=== PATIENT | male | born 1955 | race African-American/Black ===

== ENCOUNTER 2016-09-27 05:39 | Inpatient (IN) ==
[2016-09-27] MEDS ORDERED: SODIUM PHOSPHATE ENEMA 133 ML BOTTLE RECTAL ONE ×2 (05:40→06:17)
[2016-09-27] MEDS ORDERED: LACTATED RINGERS 1,000 ML IV SCH (06:00)
[2016-09-27] MEDS ORDERED: LORazepam 1 MG TABLET PO ONE (06:00)
[2016-09-27] MEDS ORDERED: FAMOTIDINE 20 MG TABLET PO ONE (06:00)
[2016-09-27] MEDS ORDERED: cefTRIAXone 1,000 MG in SODIUM CHLORIDE 0.9% 100 ML IV ONE (06:00)
[2016-09-27] MEDS ORDERED: FAMOTIDINE 20 MG TABLET ONE (06:16)
[2016-09-27] MEDS ORDERED: SODIUM CHLORIDE 0.9% 100 ML IV ONE (06:16)
[2016-09-27] MEDS ORDERED: LORazepam 1 MG TABLET ONE (06:16)
[2016-09-27] MEDS ORDERED: cefTRIAXone 1,000 MG VIAL ONE (06:16)
[2016-09-27] MEDS ORDERED: LIDOCAINE 1% 5 ML VIAL ONE (07:06)
[2016-09-27] MEDS ORDERED: ONDANSETRON 4 MG/2 ML VIAL ONE (07:06)
[2016-09-27] MEDS ORDERED: DEXAMETHASONE 10 MG/1 ML VIAL ONE (07:06)
[2016-09-27] MEDS ORDERED: NEOSTIGMINE 10 MG/10 ML VIAL ONE (07:06)
[2016-09-27] MEDS ORDERED: ROCURONIUM 100 MG/10 ML VIAL IV ONE (07:06)
[2016-09-27] MEDS ORDERED: PHENYLEPHRINE 1 MG/10 ML SYRINGE IV ONE (07:06)
[2016-09-27] MEDS ORDERED: PROPOFOL 200 MG/20 ML VIAL IV ONE (07:06)
[2016-09-27] MEDS ORDERED: GLYCOPYRROLATE 0.4 MG/2 ML VIAL ONE (07:06)
[2016-09-27 08:23] LABS: Apearance,Urine CLEAR (Clear); Bilirubin,Urine Negative (Negative); Blood, Urine Negative (Negative); Glucose,Urine (UA) Negative (Negative); Ketones,Urine Negative (Negative); Mucus,Urine Occasional /LPF (Occasional); Nitrite,Urine Negative (Negative); Protein,Urine Negative; RBC,Urine <1 /HPF (0-4); Squamous Epithelial Cell,Urine Occasional /HPF (0-10); Urine Color Yellow (Yellow); Urine Specific Gravity 1.026 (1.001-1.035); WBC,Urine <1 /HPF (0-6)
[2016-09-27] MEDS ORDERED: ONDANSETRON 4 MG/2 ML VIAL IV PRN (11:09)
--- NOTE | 2016-09-27 11:24 | Operative Note ---
Date of procedure: 09/27/16 Pre-op diagnosis: Prostate cancer Post-op diagnosis: same Procedure: 60-year-old black male with intermediate risk carcinoma prostate manner for robotic prostatectomy. This procedure was explained to the patient and his at length and in detail. Risks, complications, outcomes, sequelae, prognosis and alternative therapy was thoroughly discussed. Patient understood this and agreed to proceed. Patient was brought to the operative suite placed table in supine position. He was given a general endotracheal anesthetic and then secured on the securing device for robotic prostatectomy. He is plated placed in low stirrups. Patient is then prepared and draped in usual sterile manner. After formal timeout, patient was then placed in Trendelenburg. The patient does have small umbilical hernia. We went above the umbilicus and somewhat further cephalad than I normally would to stay away from the hernia small incision is created. Veress needle was then used passed into the abdominal wall into the peritoneal cavity. Placement was confirmed with the to click and saline drop test. Pneumoperitoneum was created after about 3-1/2 L the Veress needle was removed and an 8 mm trochars placed. Camera was inserted and intra- abdominal contents are inspected. There is no vascular bowel injury from the access. There is some adhesions on the left side of the colon which will have to be taken down and there is also some appendix adhesions on the right side which will have to be taken down. 8 cm lateral to the camera on either side a # 1 and #3 arm was placed. These were placed under direct vision. Lateral to the third arm is a fourth fourth trocar and this was placed under direct vision. The robot was then docked and I went to the console. Using [place] forceps of the left hand and monopolar scissors in the right dissection was done posteriorly. Incision created in the cul-de-sac. Vas deferens were identified and isolated and then clipped and divided. Seminal vesicles were dissected out of the bed. Care was taken using minimal cautery as this is nerve sparing. A window in Denonvilliers fascia was created. Attention was then directed bladder flap. Incision created from the internal ring up lateral to each median umbilical ligament. Ligaments are divided and cauterized the bladder flap was developed using sharp and blunt dissection. Dissection was continued in dropping the bladder into the pelvis. The endopelvic fascia was incised. There is a moderately large superficial dorsal vein and this was then ligated with the vessel sealer. Puboprostatics were incised. Prostate was defatted. There is a large complex. #1 Vicryl was then used to ligate the dorsal venous complex. Attention was directed bladder neck. Light traction on the Burden and bunching the tissue in the midline identify the bladder neck area. This is then scored with cautery and using sharp dissection down the bladder the bladder was entered. Bladder was drained the Burden catheter was deflated and the Burden catheter was pulled back into the prostatic urethra. Cautery was used to score the posterior bladder neck and sharp dissection was used to dissect down posteriorly. The fourth arm was used to retract the prostate up with pro-grasp on the posterior median lobe. After dissection down to the vas and the seminal vesicles these were then pulled up through this window. Lateral pedicles were intermittently taken down with hemoclips and divided. Lateral prostatic fascia was incised on both sides and the nerve bundles were then dissected posteriorly along the posterior margin of the prostate. Remaining pedicles were taken down in the posterior plane between the rectum and the prostate was sharply dissected and developed. Small vessels were cauterized with bipolar cautery. The nerve bundle was then dissected further inferiorly on both sides. Attention was directed to the dorsal vein complex this was incised and had to be oversewn with a 2-0 chromic. The urethra was encountered in the anterior urethra was divided Burden catheter was pulled back and the posterior urethra was divided. Remaining attachments were then divided prostate and seminal vesicles within removed and placed in specimen bag and set to the side. 2-0 Vicryl was used to approximate the posterior urethral plate to the posterior bladder neck. In the anastomosis at the urethrovesical junction was performed with a 3 oh andreas suture beginning at 6 o'clock position both outside in. This was then continued on both sides from the 5:00 to 1:00 and 7:00 to 11: 00 positions. A new 22 [place] Burden was then inserted and the anastomotic sutures were tied securely. Catheter was irrigated and this was a watertight anastomosis. Pelvic no dissection was done on both sides. Adventitia the external iliac vein was entered and mario tissue was swept in the obturator fossa. The nodes were then teased out. The obturator nerve was seen at an kept in view at all times and not injured. Both sides were then sent separate specimen. Pelvis was irrigated and drained. Pneumoperitoneum was dropped to 0 and there was no bleeding. I re-scrubbed came back to the operating table. The assistance port was incised to enlarge to remove the specimen. Cautery was used to incise the fascia and the muscles. And the specimen bag to contain the prostate and seminal vesicles were then removed and sent to pathology. This wound was closed with a running 0 Monocryl. All wounds were irrigated and drained and hemostasis was then checked with cautery. And skin clips were used to close the skin on all wounds. Sterile dressings were placed on the wound and the catheter secured to the upper thigh. Patient tolerates procedure well and was sent to the recovery room in stable condition. Implants: 22 [place] all silicone Burden Anesthesia: ROSY Surgeon / Physician: Efrain Jordan Estimated blood loss: other (100cc) Specimens: other (Prostate with seminal vesicles, bilateral obturator nodes) Condition: stable Disposition: PACU Discharge Plan - Discharge Medications No Action Lisinopril [Prinivil] 5 mg PO BID amLODIPine [Norvasc] 5 mg PO DAILY HYDROcodone/ACETAMIN 10-325 [[place] 10-325] 1 tablet PO Q6H - Follow Up or Referral - Forms/Instructions
[2016-09-27] MEDS ORDERED: DESFLURANE 1 UNIT/15 MINUTE INH ONE (11:30)
[2016-09-27] MEDS ORDERED: MIDAZOLAM 2 MG/2 ML VIAL ONE (11:31)
[2016-09-27] MEDS ORDERED: ACETAMINOPHEN 1,000 MG/100 ML VIAL IV ONE (11:31)
[2016-09-27] MEDS ORDERED: SUFentanil 50 MCG/ML AMP ONE (11:31)
[2016-09-27] MEDS ORDERED: HYDROmorphone PCA 30 MG/30 ML SYRINGE IV ONE (11:41)
[2016-09-27] MEDS: DEXTROSE 5% NACL 0.45% 1,000 ML IV SCH (11:46)
[2016-09-27] MEDS: HYDROmorphone PCA 30 MG/30 ML SYRINGE IV SCH (11:50)
--- NOTE | 2016-09-27 12:26 | Urology Progress Note ---
Urology - PN: Subj Interval history: Postoperative check. Patient is awake but sleepy. Urine is mildly bloody. Vital signs are stable. Patient is stable. Exam - Constitutional Vitals: Period Temp Pulse Resp BP Sys/Mahmood Pulse Ox Last 24 Hr 97.1 F-98.2 F 43-52 12-18 140-185/77-90 97-99
--- NOTE | 2016-09-27 13:08 | Anesthesia Post-Op ---
Anesthesia Post OP - Post Ansesthetic Evaluation Patient seen in post op: Yes Resp: within normal limits CV: within normal limits Mental: within normal limits Temp: within normal limits Mgis-Ql-Cwnavlhes: within normal limits Nausea and Vomiting: within normal limits Pain: within normal limits
--- NOTE | 2016-09-27 16:08 | Pulmonology Progress Note ---
Pulmonary - PN: Subj Interval history: Patient is a 60 year black man that came in today for robotic prostatectomy for prostate cancer. He has a history of having hypertension and mild heart failure in the past. He has been a smoker. He did well with surgery today and had no problems with anesthesia. He is very sore but otherwise says he feels okay. His heart rate has been on the slow side since surgery. Otherwise he is doing okay Exam (Progress Note) - Constitutional Vitals: Period Temp Pulse Resp BP Sys/Mahmood Pulse Ox Last 24 Hr 97.1 F-98.2 F 41-52 12-18 140-187/77-98 97-99 General appearance: normal weight, no acute distress - Head Head exam: Present: normal inspection, normocephalic - Eye Eye exam: Present: EOMI. Absent: scleral icterus Pupils: Present: STANISLAW - ENT ENT exam: Present: normal exam - Neck Neck exam: Present: normal inspection. Absent: lymphadenopathy, thyromegaly - Respiratory Respiratory exam: Present: clear to auscultation bilaterally. Absent: wheezes - Cardiovascular Cardiovascular exam: Present: bradycardia, irregular rhythm. Absent: systolic murmur - GI/Abdominal GI/Abdominal exam: Present: hypoactive bowel sounds, tenderness (He has mild tenderness of his lower abdomen), soft. Absent: distended, organomegaly - Extremities Exam Extremities exam: Absent: calf tenderness, edema - Neurological Exam Neurological exam: Present: alert, oriented X3, CN II-XII intact - Psychiatric Psychiatric exam: Present: normal affect, normal mood - Skin Skin exam: Present: warm, dry Assessment and Plan (1) Prostate CA Status: Acute Assessment and plan: The patient has prostate cancer and status post surgery. Current Visit: Yes (2) Status post robot-assisted surgical procedure Status: Acute Assessment and plan: The patient has done fairly well with the surgery so far. Current Visit: Yes (3) Hypertension Status: Acute Assessment and plan: His blood pressure is a little on the high side so far. Current Visit: Yes (4) Former smoker Status: Acute Assessment and plan: He is not having trouble with his breathing so far. Current Visit: Yes
[2016-09-27] MEDS: LACTULOSE 20 GM/30 ML UDCUP PO SCH (20:42)
[2016-09-27] MEDS: LISINOPRIL 5 MG TABLET PO SCH (20:47)
[2016-09-28] MEDS: DEXTROSE 5% NACL 0.45% 1,000 ML IV SCH ×2 (02:43→09:37)
[2016-09-28 05:46] LABS: Basophils % 0.1 % (0.0-0.8); Eosinophils % 0.1 % (0.00-10.9); Hematocrit 38.4 VOL% (42.0-52.0); Hemoglobin 12.8 GM/DL (14.0-18.0); Immature Granulocytes % 0.5 %; Immature Granulocytes Absolute 0.06 #; Lymphocytes % 14.9 % (21.2-54.2); Mean Corpuscular HGB Conc 33.3 GM/DL (32-36); Mean Corpuscular Hemoglobin 28 PG (27-34); Mean Platelet Volume 11.7 FL (9.6-12.0); Monocytes # 0.9 10*3/uL (0.11-0.8); Monocytes % 6.9 % (1.7-12.7); Neutrophils # 10.2 10*3/uL (1.4-7.4); Neutrophils % 77.5 % (38.7-73.9); Platelet Count 164 T/CUMM (130-400); Red Blood Count 4.57 MC/CUMM (3.8-5.5); Red Cell Distribution Width 13.9 % (9.3-17.3); White Blood Count 13.1 T/CUMM (4-12)
[2016-09-28 06:17] LABS: Calcium 8.5 MG/DL (8.5-10.1); Osmolality,Calculated 276.8 MOS/KG (273-304); Potassium 4.8 MMOL/L (3.5-5.1)
[2016-09-28] MEDS ORDERED: amLODIPine 5 MG TABLET PO SCH (09:00)
--- NOTE | 2016-09-28 09:31 | Urology Progress Note ---
Urology - PN: Subj Interval history: Postop day 1. He is doing well he is hungry. His abdomen is soft and flat. Bowel sounds are returning. His dressings are dry and intact. Urine is clearing. He is tolerating his diet. 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 We need to ambulate. H&H is 12 and 32 electrolytes are normal as is the creatinine. Exam - Constitutional Vitals: Period Temp Pulse Resp BP Sys/Mahmood Pulse Ox Last 24 Hr 96.9 F-98.2 F 41-52 12-18 118-187/65-111 96-100 Results - Labs CBC & BMP: 09/28/16 04:59 09/28/16 04:59
[2016-09-28] MEDS: SOLIFENACIN 5 MG TABLET PO SCH (09:36)
[2016-09-28] MEDS: LACTULOSE 20 GM/30 ML UDCUP PO SCH ×2 (09:36→20:13)
--- NOTE | 2016-09-28 11:49 | Pathology Report from [facility] ---
ACCESSION # : [id number] PATIENT NAME : Ricardo Javier ORDERING DR : MARA DONALDSON MD CLINICAL HX: Prostate CA POST-OP DX: Same SPECIMEN INFO: #1 [place] margin #2 RT obturator node #3 LT obturator node #4 Prostate GROSS DESCRIPTION: #1 Received fresh for frozen section labeled "RICARDO JAVIER & #1" is a 0.6 x 0.3 cm red nicholson tissue fragment submitted in cassette # 1 for frozen section in cassette #1.#2 Received fresh labeled with the patient' s name "RICARDO JAVIER & #2" consists of a 2.5 x 2.3 cm aggregate of yellow- pink fatty tissue. Sectioned and submitted entirely in cassette 2A and 2B.#3 Received fresh labeled with the patient's name "RICARDO JAVIER & #3" consists of a fragment of yellow-pink fatty tissue measuring 5.0 x 2.3 cm. Sectioned and submitted in cassette #3.#4 Received in formalin labeled with the patient's name "RICARDO JAVIER & #4" consists of a 48 gram prostate measuring 4.8 x 4.0 x 4.0 cm. The seminal vesicles measure 4.5 x 3.2 cm in aggregate. The serosa is shaggy and red-nicholson with the right half inked black and the left half inked blue. The cut surfaces of the prostate are nodular and nicholson. Sections submitted : 4A apical margin, 4B base margin, 4C seminal vesicles margin, 4D thru 4H right apex to base, 4I thru 4M left apex to base. DIAGNOSIS FOR RICARDO JAVIER: #1 APEX MARGIN: Prostate tissue; negative for malignancy.#2 #3 #4 PROSTATE, RADICAL PROSTATECTOMY (4.8 x 4.0 x 4.0 cm, 48gm) : TYPE: Prostatic adenocarcinoma, bilateral. GRADE: Primary Pattern Grade 3; Secondary Pattern Grade 3; Total [place] Score 6. ANABEL GRADE GROUP: 1(<6/=6) . TUMOR QUANTITATION: Percentage of prostate involved by tumor 25%; Dominant nodule = 8 mm. MARGINS: Margins uninvolved by invasive carcinoma. EXTRAPROSTATIC EXTENSION: Not Identified. SEMINAL VESICLE INVASION: Not identified. URINARY BLADDER NECK INVASION: Not identified. LYMPH-VASCULAR INVASION: Not identified. PERINEURAL INVASION: Present. LYMPH NODES: Pelvic lymph node dissection negative for malignancy (0/10). AJCC PATHOLOGIC STAGE IIB ([id number]). SERVICE DATE: 09/27/2016 REPORT DATE: 09/28/2016 PATHOLOGIST: Kingston Sweeney
--- NOTE | 2016-09-28 12:23 | Pulmonology Progress Note ---
Pulmonary - PN: Subj Interval history: Patient is a 60 year black man that came in for robotic prostatectomy for prostate cancer. He has a history of having hypertension and mild heart failure in the past. He has been a smoker. He did well with surgery and had no problems with anesthesia. He is feeling better today and having less soreness. He is hungry and wants to eat some food. His heart rate and blood pressure have been on the low side. He is not having any chest pain or shortness of breath. He is going to try to ambulate some today. Exam (Progress Note) - Constitutional Vitals: Period Temp Pulse Resp BP Sys/Mahmood Pulse Ox Last 24 Hr 96.9 F-98.9 F 41-50 18-18 118-181/65-111 96-100 Exam: General appearance: normal weight, no acute distress, he looks comfortable sitting up in bed. - Head Head exam: Present: normal inspection, normocephalic - Eye Eye exam: Present: EOMI. Absent: scleral icterus Pupils: Present: STANISLAW - ENT ENT exam: Present: normal exam - Neck Neck exam: Present: normal inspection. Absent: lymphadenopathy, thyromegaly - Respiratory Respiratory exam: Present: clear to auscultation bilaterally. Absent: wheezes - Cardiovascular Cardiovascular exam: Present: bradycardia, irregular rhythm. Absent: systolic murmur - GI/Abdominal GI/Abdominal exam: Present: hypoactive bowel sounds, tenderness (He has mild tenderness of his lower abdomen), soft. Absent: distended, organomegaly - Extremities Exam Extremities exam: Absent: calf tenderness, edema, he is moving his extremities okay. - Neurological Exam Neurological exam: Present: alert, oriented X3, CN II-XII intact - Psychiatric Psychiatric exam: Present: normal affect, normal mood - Skin Skin exam: Present: warm, dry Results - Labs CBC & BMP: 09/28/16 04:59 09/28/16 04:59 Assessment and Plan (1) Prostate CA Status: Acute Assessment and plan: The patient has prostate cancer and status post surgery. He is doing well postop. Current Visit: Yes (2) Status post robot-assisted surgical procedure Status: Acute Assessment and plan: The patient had a good resection of his tumor and is doing well. Current Visit: Yes (3) Hypertension Status: Acute Assessment and plan: His blood pressure has been fairly stable although his heart rate is slow. We are holding some medicines for now. Current Visit: Yes (4) Former smoker Status: Acute Assessment and plan: He is not having trouble with his breathing so far. Current Visit: Yes
[2016-09-28] MEDS: oxyCODONE/ACETAMINOPHEN 5-325 MG TABLET PO PRN ×3 (12:28→23:42)
[2016-09-28] MEDS: LISINOPRIL 5 MG TABLET PO SCH ×2 (12:29→21:06)
[2016-09-28] MEDS: HYDROmorphone PCA 30 MG/30 ML SYRINGE IV SCH (13:40)
[2016-09-29] MEDS: SOLIFENACIN 5 MG TABLET PO SCH (08:27)
[2016-09-29] MEDS: LISINOPRIL 5 MG TABLET PO SCH (08:27)
[2016-09-29] MEDS: LACTULOSE 20 GM/30 ML UDCUP PO SCH (08:27)
--- NOTE | 2016-09-29 10:25 | Pulmonology Progress Note ---
Pulmonary - PN: Subj Interval history: Patient is a 60 year black man that came in for robotic prostatectomy for prostate cancer. He has a history of having hypertension and mild heart failure in the past. He has been a smoker. He did well with surgery and had no problems with anesthesia. He continues to have some soreness and did have some abdominal cramps. He thinks he may have eaten a little too much yesterday. He is feeling better today. His heart rate is been a little slow but it is in the 50s now. His blood pressure has been reasonable. Overall he seems to be doing a little better. His urine is cleared up nicely Exam (Progress Note) - Constitutional Vitals: Period Temp Pulse Resp BP Sys/Mahmood Pulse Ox Last 24 Hr 98.3 F-98.9 F 46-61 18-20 134-169/73-94 92-96 Exam: General appearance: normal weight, no acute distress, he looks comfortable sitting up in bed. He is in no distress - Head Head exam: Present: normal inspection, normocephalic - Eye Eye exam: Present: EOMI. Absent: scleral icterus Pupils: Present: STANISLAW - ENT ENT exam: Present: normal exam - Neck Neck exam: Present: normal inspection. Absent: lymphadenopathy, thyromegaly - Respiratory Respiratory exam: Present: clear to auscultation bilaterally. Absent: wheezes - Cardiovascular Cardiovascular exam: Present: bradycardia, irregular rhythm. Absent: systolic murmur - GI/Abdominal GI/Abdominal exam: Present: hypoactive bowel sounds, tenderness (He has mild tenderness of his lower abdomen), soft. Absent: distended, organomegaly. His hematuria has cleared - Extremities Exam Extremities exam: Absent: calf tenderness, edema, he is moving his extremities okay. - Neurological Exam Neurological exam: Present: alert, oriented X3, CN II-XII intact - Psychiatric Psychiatric exam: Present: normal affect, normal mood - Skin Skin exam: Present: warm, dry Results - Labs CBC & BMP: 09/28/16 04:59 09/28/16 04:59 Assessment and Plan (1) Prostate CA Status: Acute Assessment and plan: The patient has prostate cancer and status post surgery. He is doing well postop. Current Visit: Yes (2) Status post robot-assisted surgical procedure Status: Acute Assessment and plan: The patient had a good resection of his tumor and is doing well. He has had some abdominal pain but is getting better. Current Visit: Yes (3) Hypertension Status: Acute Assessment and plan: His blood pressure has been around 160 systolic. His heart rate is in the 50s now. He can probably start his lisinopril back soon. Current Visit: Yes (4) Former smoker Status: Acute Assessment and plan: He is not having trouble with his breathing so far. Current Visit: Yes
--- NOTE | 2016-09-29 12:40 | Discharge Summary ---
Hospital Course - Hospital Course Hospital Course: 60-year-old gentleman with carcinoma prostate. Like to undergo robotic radical prostatectomy. Underwent this without difficulty. Postoperatively he had an uneventful course. His urine was bloody at first but is cleared up. His H&H has been stable. Electrolytes are normal as well as his creatinine. He is now tolerating regular diet. His wounds are healing well. He is reached maximal hospital benefit and will be discharged. He will come see my nurse on 10/06/16 for catheter removal. He will see me the following week. - Time spent with patient Time with patient DS: Greater than 30 minutes Diagnosis - Discharge Diagnosis (1) Prostate CA Status: Resolved (2) Hypertension Status: Chronic Discharge Plan - Discharge Data Disposition: Disch To Home/Self Care Condition at Discharge: Stable Discharge Diet: heart healthy Activity: no lifting, other (Walking on flat ground is encouraged, no heavy lifting, straining) Hygiene: no restrictions Weight Bearing at Discharge: full weight bearing Driving: not until seen by doctor Contact your physician if you experience:: fever over 101, Nausea/Vomiting, Bleeding, pain uncontrolled by pain medications - Discharge Medications New oxyCODONE/ACETAMINOPHEN 5-325 [Percocet 5-325] 1 - 2 tablet PO Q4H PRN #0 tablet PRN Reason: Pain Moderate (4-7) Solifenacin [Vesicare] 5 mg PO DAILY tablet Continue Lisinopril [Prinivil] 5 mg PO BID amLODIPine [Norvasc] 5 mg PO DAILY HYDROcodone/ACETAMIN 10-325 [[place] 10-325] 1 tablet PO Q6H - Follow Up or Referral - Forms/Instructions Exam - Constitutional Vitals: Period Temp Pulse Resp BP Sys/Mahmood Pulse Ox Last 24 Hr 98.3 F-98.9 F 49-61 18-20 151-169/73-94 92-96 DS: Provider Date of admission: 09/27/16 05:40 Primary care physician: Robert Dawson Attending physician on admission: Efrain Jordan MD Consults: 09/27/16 11:13 Consult to Physician [CONS] Routine Comment: known to you Consulting Provider: Beltran Carlisle Consult to Specialist Group: Urology When should Consulting Provider be notified: Now Person Notified: aware Date Notified: 09/28/16 Time Notified: 12:35 Consult Notification Comment: left message with Arcenio at 1236 on answering machine to call CALL BACK @2:18 VM CAME ON Discharging clinician: Efrain Jordan MD
[2016-09-29 12:50] VITALS: BP 154/76
== END 2016-09-29 15:10 | disposition home or self-care (01) | DRG 708 ==
LOC: N.OR 05:39 → N.SDSINP 05:40 → EDSTATUS 07:30 → N.5E 08:31
PROVIDERS: ADMIT Urology; ATTEND Urology

== ENCOUNTER 2020-10-20 05:07 | Observation (INO) ==
[2020-10-20] MEDS ORDERED: FUROSEMIDE 100 MG/10 ML VIAL ONE (05:37)
[2020-10-20] MEDS ORDERED: methylPREDNISolone SOD SUC 125 MG/2 ML VIAL ONE (05:37)
[2020-10-20 05:39] LABS: Basophils # 0.1 10*3/uL (0.0-0.2); Basophils % 0.7 % (0.0-0.8); Eosinophils # 0.3 10*3/uL (0.0-0.87); Eosinophils % 4.3 % (0.00-10.9); Hematocrit 40.4 VOL% (42.0-52.0); Hemoglobin 13.4 GM/DL (14.0-18.0); Immature Granulocytes % 0.1 %; Immature Granulocytes Absolute 0.01 #; Lymphocytes # 2.9 10*3/uL (1.4-4.0); Lymphocytes % 39.1 % (21.2-54.2); Mean Corpuscular HGB Conc 33.2 GM/DL (32-36); Mean Corpuscular Volume 87.3 FL (87-102); Mean Platelet Volume 12.1 FL (9.6-12.0); Monocytes % 6.3 % (1.7-12.7); Neutrophils % 49.5 % (38.7-73.9); Platelet Count 146 T/CUMM (130-400); Red Blood Count 4.63 MC/CUMM (3.8-5.5); Red Cell Distribution Width 13.6 % (9.3-17.3); White Blood Count 7.4 T/CUMM (4-12)
[2020-10-20] MEDS ORDERED: ASPIRIN 325 MG TABLET PO STA (05:39)
[2020-10-20] MEDS ORDERED: methylPREDNISolone SOD SUC 125 MG/2 ML VIAL IV STA (05:39)
[2020-10-20] MEDS ORDERED: ONDANSETRON 4 MG/2 ML VIAL IV STA (05:39)
[2020-10-20] MEDS ORDERED: NITROGLYCERIN 2% OINT 1 INCH/GM PACK TOP STA (05:39)
[2020-10-20] MEDS ORDERED: MORPHINE 4 MG/1 ML VIAL IV STA (05:39)
[2020-10-20] MEDS ORDERED: FUROSEMIDE 100 MG/10 ML VIAL IV STA (05:39)
[2020-10-20] MEDS ORDERED: ALBUTEROL 2.5 MG/3 ML NEB RESP TX ONE ×2 (05:52→06:36)
[2020-10-20] MEDS ORDERED: ALBUTEROL NEB SOLN 5 MG/ML 20 ML/BOTTLE CONT NEB SCH (06:00)
[2020-10-20 06:04] LABS: Albumin 3.4 G/DL (3.4-5.0); Bilirubin,Total 0.7 MG/DL (0.2-1.0); Calcium 8.9 MG/DL (8.5-10.1); Osmolality,Calculated 282.3 MOS/KG (273-304); Potassium 4.1 MMOL/L (3.5-5.1); Total Protein 7.2 G/DL (6.4-8.2)
[2020-10-20 06:05] LABS: PT Patient Result 11.4 SECS (10.5-12.0); Partial Thromboplastin Time 26.9 SECS (23.9-33.8)
[2020-10-20] MEDS ORDERED: ONDANSETRON 4 MG/2 ML VIAL IV PRN (09:28)
[2020-10-20] MEDS ORDERED: DOCUSATE SODIUM 100 MG CAPSULE PO PRN (09:28)
[2020-10-20] MEDS ORDERED: MAGNESIUM SULF RIDER 2 GM/50 ML PREMIX IV PRN (09:28)
[2020-10-20] MEDS ORDERED: MAGNESIUM SULF RIDER 4 GM/100 ML PREMIX IV PRN (09:28)
[2020-10-20] MEDS ORDERED: ZALEPLON 5 MG CAPSULE PO PRN (09:28)
[2020-10-20] MEDS ORDERED: NICOTINE 21 MG/24 HR PATCH TRANSDERM PRN (09:28)
[2020-10-20] MEDS ORDERED: GLUCAGON 1 MG VIAL IM PRN (09:28)
[2020-10-20] MEDS ORDERED: DEXTROSE 50% 25 GM/50 ML VIAL IV PRN (09:28)
[2020-10-20] MEDS ORDERED: ACETAMINOPHEN 325 MG TABLET PO PRN (09:28)
[2020-10-20] MEDS ORDERED: hydrALAZINE 20 MG/1 ML VIAL IV PRN (10:12)
[2020-10-20 12:07] LABS: ABG Base Excess 1.5 MMOL/L (-2.5-2.5); ABG HCO3 25.6 MMOL/L (20-26); ABG Oxygen Saturation 96.9 % (95-100); ABG PCO2 38.8 MM HG (35-48); ABG PH 7.437 (7.35-7.45); ABG PO2 90.2 MM HG (80-95); ABG TCO2 26.8 MMOL/L (23-27); Pt O2 Delivery Device Room Air
[2020-10-20] MEDS: ENOXAPARIN 40 MG/0.4 ML SYRINGE SUBCUT SCH (13:01)
[2020-10-20] MEDS: PANTOPRAZOLE 40 MG TABLET PO SCH (13:01)
[2020-10-20] MEDS: ALBUTEROL 1.25 MG/3 ML NEB RESP TX SCH ×2 (15:50→19:01)
[2020-10-20] MEDS: ATORVASTATIN 40 MG TABLET PO SCH (17:37)
[2020-10-20] MEDS: lisinopriL 5 MG TABLET PO SCH (20:24)
[2020-10-21] MEDS: ALBUTEROL 1.25 MG/3 ML NEB RESP TX SCH ×4 (02:58→18:22)
[2020-10-21 06:38] LABS: Basophils % 0.1 % (0.0-0.8); Eosinophils # 0.1 10*3/uL (0.0-0.87); Eosinophils % 0.7 % (0.00-10.9); Hematocrit 35.5 VOL% (42.0-52.0); Hemoglobin 11.8 GM/DL (14.0-18.0); Immature Granulocytes % 0.4 %; Immature Granulocytes Absolute 0.05 #; Lymphocytes # 2.4 10*3/uL (1.4-4.0); Lymphocytes % 17.5 % (21.2-54.2); Mean Corpuscular HGB Conc 33.2 GM/DL (32-36); Mean Corpuscular Volume 85.1 FL (87-102); Mean Platelet Volume 12.4 FL (9.6-12.0); Monocytes % 6.4 % (1.7-12.7); Neutrophils % 74.9 % (38.7-73.9); Platelet Count 150 T/CUMM (130-400); Red Blood Count 4.17 MC/CUMM (3.8-5.5); Red Cell Distribution Width 13.4 % (9.3-17.3); White Blood Count 13.8 T/CUMM (4-12)
[2020-10-21 07:05] LABS: Calcium 8.7 MG/DL (8.5-10.1); Osmolality,Calculated 285.3 MOS/KG (273-304); Potassium 3.6 MMOL/L (3.5-5.1); Risk Ratio 3.9; Thyroid Stimulating Hormone 0.19 uIU/ml (0.358-3.74); VLDL CHOLESTEROL 11.6 MG/DL
[2020-10-21] MEDS: PANTOPRAZOLE 40 MG TABLET PO SCH (09:48)
[2020-10-21] MEDS: ASPIRIN EC 81 MG TABLET PO SCH (09:48)
[2020-10-21] MEDS: lisinopriL 5 MG TABLET PO SCH ×2 (09:48→20:17)
[2020-10-21] MEDS: amLODIPine 5 MG TABLET PO SCH (09:48)
[2020-10-21] MEDS: SOLIFENACIN 5 MG TABLET PO SCH (09:49)
[2020-10-21] MEDS: ENOXAPARIN 40 MG/0.4 ML SYRINGE SUBCUT SCH (09:49)
[2020-10-21] MEDS: FUROSEMIDE 40 MG/4 ML VIAL IV SCH (09:52)
[2020-10-21] MEDS ORDERED: methylPREDNISolone ACETATE 80 MG/1 ML VIAL IM ONE (10:00)
[2020-10-21] MEDS ORDERED: guaiFENesin 200 MG/10 ML UDCUP PO PRN (10:10)
[2020-10-21] MEDS: ATORVASTATIN 40 MG TABLET PO SCH (17:56)
[2020-10-22] MEDS: ALBUTEROL 1.25 MG/3 ML NEB RESP TX SCH ×3 (03:36→13:37)
[2020-10-22 04:40] LABS: Calcium 8.7 MG/DL (8.5-10.1); Osmolality,Calculated 280.5 MOS/KG (273-304)
[2020-10-22] MEDS: amLODIPine 5 MG TABLET PO SCH (08:36)
[2020-10-22] MEDS: ASPIRIN EC 81 MG TABLET PO SCH (08:36)
[2020-10-22] MEDS: PANTOPRAZOLE 40 MG TABLET PO SCH (08:36)
[2020-10-22] MEDS: ENOXAPARIN 40 MG/0.4 ML SYRINGE SUBCUT SCH (08:37)
[2020-10-22] MEDS: FUROSEMIDE 40 MG/4 ML VIAL IV SCH (08:37)
[2020-10-22] MEDS: lisinopriL 5 MG TABLET PO SCH (08:37)
[2020-10-22] MEDS: SOLIFENACIN 5 MG TABLET PO SCH (08:37)
[2020-10-22 12:04] VITALS: BP 113/59
== END 2020-10-22 14:44 | disposition home or self-care (01) ==
LOC: N.TELES 05:07 → N.EDINP 05:07 → N.ED 05:07 → N.TELES 11:01
PROVIDERS: ADMIT Family Medicine; ATTEND Family Medicine

== ENCOUNTER 2021-01-04 09:19 | Inpatient (IN) ==
[~2021-01-04 09:19] MED LIST: DEXTROSE 50% 25 GM/50 ML VIAL IV PRN; GLUCAGON 1 MG VIAL IM PRN
[2021-01-04 11:57] LABS: Basophils % 0.7 % (0.0-0.8); Eosinophils # 0.3 10*3/uL (0.0-0.87); Hematocrit 41.9 VOL% (42.0-52.0); Hemoglobin 13.8 GM/DL (14.0-18.0); Immature Granulocytes % 0.2 %; Immature Granulocytes Absolute 0.01 #; Lymphocytes # 2.2 10*3/uL (1.4-4.0); Lymphocytes % 40.2 % (21.2-54.2); Mean Corpuscular HGB Conc 32.9 GM/DL (32-36); Mean Platelet Volume 11.7 FL (9.6-12.0); Monocytes % 7.7 % (1.7-12.7); Neutrophils % 46.2 % (38.7-73.9); Platelet Count 167 T/CUMM (130-400); Red Blood Count 4.87 MC/CUMM (3.8-5.5); Red Cell Distribution Width 14.4 % (9.3-17.3); White Blood Count 5.4 T/CUMM (4-12)
[2021-01-04 12:30] LABS: Albumin 3.7 G/DL (3.4-5.0); Bilirubin,Total 1.3 MG/DL (0.20-1.00); Osmolality,Calculated 287.8 MOS/KG (273-304); Potassium 4.3 MMOL/L (3.5-5.1); Total Protein 7.4 G/DL (6.4-8.2)
[2021-01-04] MEDS: CHLORHEXIDINE 0.12% ORAL RINSE 60 ML BOTTLE SWISH/SPIT SCH ×2 (14:09→21:48)
[2021-01-04] MEDS: CHLORHEXIDINE 4% SOLN 118 ML BOTTLE TOP SCH ×3 (14:10→21:48)
[2021-01-04] MEDS: ASCORBIC ACID 500 MG TABLET PO SCH ×2 (14:10→21:48)
[2021-01-04 17:20] LABS: ABG Base Excess -1.8 MMOL/L (-2.5-2.5); ABG HCO3 22.9 MMOL/L (20-26); ABG Oxygen Saturation 97.4 % (95-100); ABG PO2 88.9 MM HG (80-95); ABG TCO2 20.2 MMOL/L (23-27); Allen Test Positive; Pt O2 Delivery Device Room Air
[2021-01-04] MEDS: SODIUM CHLORIDE 0.9% 1,000 ML IV SCH (20:31)
[2021-01-05] MEDS ORDERED: PAPAVERINE 60 MG/2 ML VIAL ONE (04:21)
[2021-01-05] MEDS ORDERED: VANCOMYCIN 1,000 MG VIAL ONE (04:22)
[2021-01-05] MEDS ORDERED: VANCOMYCIN 500 MG VIAL ONE (04:22)
[2021-01-05] MEDS ORDERED: CHLORHEXIDINE 4% SOLN 118 ML BOTTLE TOP ONE (05:00)
[2021-01-05] MEDS ORDERED: CEFUROXIME INJ 1,500 MG in SODIUM CHLORIDE 0.9% 100 ML IV ONE (05:00)
[2021-01-05] MEDS ORDERED: LACTATED RINGERS 1,000 ML IV ONE ×2 (05:41→11:13)
[2021-01-05] MEDS ORDERED: SODIUM CHLORIDE 0.9% 1,000 ML IV ONE ×2 (05:42→10:22)
[2021-01-05] MEDS ORDERED: PHENYLEPHRINE DRIP 20 MG/250 ML PREMIX IV ONE (05:44)
[2021-01-05] MEDS ORDERED: NITROGLYCERIN DRIP 50 MG/250 ML BOTTLE IV ONE ×2 (05:46→19:35)
[2021-01-05] MEDS ORDERED: HEPARIN/NACL 0.9% 2 UNITS/ML 1,000 UNIT/500 ML BAG IV ONE (05:48)
[2021-01-05] MEDS ORDERED: AMINOCAPROIC ACID 5,000 MG/20 ML VIAL ONE (05:53)
[2021-01-05] MEDS ORDERED: SODIUM CHLORIDE 0.9% 250 ML IV ONE ×2 (05:53→06:19)
[2021-01-05] MEDS ORDERED: SUFentanil 250 MCG/5 ML AMP ONE ×4 (05:57→05:58)
[2021-01-05] MEDS ORDERED: SODIUM CHLORIDE 0.9% 100 ML IV ONE ×2 (05:58→11:28)
[2021-01-05] MEDS ORDERED: MIDAZOLAM 10 MG/2 ML VIAL ONE ×4 (06:06)
[2021-01-05] MEDS ORDERED: VECURONIUM 10 MG VIAL IV ONE (06:10)
[2021-01-05] MEDS ORDERED: LIDOCAINE 2% 5 ML VIAL ONE ×2 (06:13→11:46)
[2021-01-05] MEDS ORDERED: ETOMIDATE 40 MG/20 ML VIAL IV ONE (06:14)
[2021-01-05] MEDS ORDERED: ePHEDrine 50 MG/ML VIAL ONE (06:18)
[2021-01-05] MEDS ORDERED: EPINEPHrine 1 MG/ML VIAL ONE (06:18)
[2021-01-05] MEDS ORDERED: CALCIUM CHLORIDE 1,000 MG/10 ML VIAL IV ONE (06:22)
[2021-01-05] MEDS ORDERED: MINERAL OIL/PETROLATUM OPH OINT 3.5 GM TUBE ONE (06:25)
[2021-01-05] MEDS ORDERED: PANTOPRAZOLE 40 MG TABLET PO ONE (06:30)
[2021-01-05] MEDS ORDERED: DIAZEPAM 5 MG TABLET PO ONE (06:30)
[2021-01-05 07:51] LABS: ABG Base Excess -1.5 MMOL/L (-2.5-2.5); ABG HCO3 23.8 MMOL/L (20-26); ABG Oxygen Saturation 99.2 % (95-100); ABG PCO2 42.2 MM HG (35-48); ABG PH 7.369 (7.35-7.45); ABG PO2 398.9 MM HG (80-95); ABG TCO2 25.1 MMOL/L (23-27); Glucose Heart Surgery 95 MG/DL (74-106); Hemoglobin Heart Surgery 12.4 G/DL (14.0-18.0); Ionized Calcium Arterial 1.17 MMOL/L (1.21-1.46); PCO2 Patient Temp Arterial 42.2 MMHG; PH Patient Temp Arterial 7.369; PO2 Patient Temp Arterial 398.9 MM HG; Patient Temperature 37 CELCIUS; Potassium Heart/CVR 3.9 MMOL/L (3.5-5.1); Sodium Heart/CVR 139 MMOL/L (135-145)
[2021-01-05 07:59] LABS: Bilirubin,Urine Negative (Negative); Blood, Urine Negative (Negative); Glucose,Urine (UA) Negative (Negative); Ketones,Urine Negative (Negative); Mucus,Urine Few /LPF (Occasional); Nitrite,Urine Negative (Negative); Protein,Urine Negative; RBC,Urine 2 /HPF (0-4); Urine Appearance CLEAR (Clear); Urine Color Yellow (Yellow); Urine Specific Gravity 1.027 (1.001-1.035); Urine Urobilinogen < 2.0 EU/DL (0.2-1.0)
[2021-01-05] MEDS ORDERED: GLYCOPYRROLATE 0.4 MG/2 ML VIAL ONE (08:12)
[2021-01-05] MEDS ORDERED: POTASSIUM CHLORIDE RIDER 20 MEQ/100 ML PREMIX IV ONE (09:15)
[2021-01-05] MEDS ORDERED: PHENYLEPHRINE DRIP 40 MG/250 ML PREMIX IV ONE (09:15)
[2021-01-05] MEDS ORDERED: ALBUMIN 5% 12.5 GM/250 ML VIAL IV ONE ×2 (09:16)
[2021-01-05 09:39] LABS: Hemoglobin Heart Surgery 10.1 G/DL (14.0-18.0); PCO2 Patient Temp Venous 31.1 MM HG; PH Patient Temp Venous 7.478; PO2 Patient Temp Venous 39.2 MM HG; Potassium Heart/CVR 4.9 MMOL/L (3.5-5.1); VBG Base Excess -0.8 MEQ/L (0-4); VBG HCO3 23.2 MEQ/L (24-28); VBG Oxygen Saturation 85.1 %; VBG PCO2 35.5 MMHG (41-51); VBG PH 7.433; VBG PO2 48.4 MMHG (17-40); VBG Total CO2 24.3 MMOL/L
[2021-01-05 10:09] LABS: Hematocrit Heart Surgery 29.7 PERCENT (42-52); Hemoglobin Heart Surgery 9.6 G/DL (14.0-18.0); PCO2 Patient Temp Venous 32.7 MM HG; PH Patient Temp Venous 7.456; PO2 Patient Temp Venous 36.8 MM HG; Potassium Heart/CVR 4.8 MMOL/L (3.5-5.1); VBG Base Excess -0.3 MEQ/L (0-4); VBG Oxygen Saturation 84.6 %; VBG PCO2 39.7 MMHG (41-51); VBG PH 7.398; VBG PO2 48.5 MMHG (17-40); VBG Total CO2 22.4 MMOL/L
[2021-01-05] MEDS: CHLORHEXIDINE 0.12% ORAL RINSE 60 ML BOTTLE SWISH/SPIT SCH ×2 (10:24→21:21)
[2021-01-05] MEDS: ASCORBIC ACID 500 MG TABLET PO SCH (10:25)
[2021-01-05 10:42] LABS: Hematocrit Heart Surgery 29.9 PERCENT (42-52); Hemoglobin Heart Surgery 9.6 G/DL (14.0-18.0); PH Patient Temp Venous 7.434; PO2 Patient Temp Venous 38.1 MM HG; Potassium Heart/CVR 4.8 MMOL/L (3.5-5.1); VBG Base Excess -0.9 MEQ/L (0-4); VBG HCO3 23.5 MEQ/L (24-28); VBG PCO2 41.3 MMHG (41-51); VBG PH 7.376; VBG PO2 50.1 MMHG (17-40); VBG Total CO2 22.2 MMOL/L
[2021-01-05] MEDS ORDERED: THROMBIN TOPICAL (RECOMBINANT) 5,000 UNIT VIAL TOP ONE (11:11)
[2021-01-05 11:16] LABS: Hematocrit Heart Surgery 29.6 PERCENT (42-52); Hemoglobin Heart Surgery 9.6 G/DL (14.0-18.0); PCO2 Patient Temp Venous 43.2 MM HG; PH Patient Temp Venous 7.336; PO2 Patient Temp Venous 38.6 MM HG; Potassium Heart/CVR 4.7 MMOL/L (3.5-5.1); VBG Base Excess -2.7 MEQ/L (0-4); VBG HCO3 21.8 MEQ/L (24-28); VBG Oxygen Saturation 72.3 %; VBG PCO2 45.3 MMHG (41-51); VBG PH 7.321; VBG PO2 41.4 MMHG (17-40); VBG Total CO2 21.7 MMOL/L
[2021-01-05] MEDS ORDERED: AMIODARONE 150 MG/3 ML VIAL ONE (11:27)
[2021-01-05] MEDS ORDERED: MAGNESIUM SULFATE 5 GM/10 ML VIAL IV ONE (11:46)
[2021-01-05] MEDS ORDERED: ALBUMIN 25% 25 GM/100 ML VIAL IV ONE (11:46)
[2021-01-05] MEDS ORDERED: methylPREDNISolone SOD SUC 1,000 MG/8 ML VIAL ONE (11:47)
[2021-01-05] MEDS ORDERED: PROTAMINE SULFATE 50 MG/5 ML VIAL IV ONE (11:47)
[2021-01-05] MEDS ORDERED: SODIUM BICARBONATE 50 MEQ/50 ML VIAL IV ONE ×2 (11:47→12:35)
[2021-01-05] MEDS ORDERED: DEXTROSE 5% KCL 20 MEQ 20 MEQ/1,000 ML BAG IV ONE (11:47)
[2021-01-05] MEDS ORDERED: HEPARIN 10,000 UNIT/10 ML VIAL ONE (11:47)
[2021-01-05] MEDS ORDERED: PROTAMINE SULFATE 250 MG/25 ML VIAL IV ONE (11:47)
[2021-01-05] MEDS ORDERED: FUROSEMIDE 20 MG/2 ML VIAL ONE (11:47)
[2021-01-05] MEDS ORDERED: MANNITOL 100 GM/500 ML BAG IV ONE (11:47)
[2021-01-05] MEDS ORDERED: ESMOLOL 100 MG/10 ML VIAL IV ONE (11:48)
[2021-01-05 11:49] LABS: ABG Base Excess -1.4 MMOL/L (-2.5-2.5); ABG HCO3 23.3 MMOL/L (20-26); ABG Oxygen Saturation 99.5 % (95-100); ABG PCO2 41.4 MM HG (35-48); ABG PH 7.368 (7.35-7.45); ABG TCO2 21.8 MMOL/L (23-27); Glucose Heart Surgery 149 MG/DL (74-106); Hematocrit Heart Surgery 30.2 PERCENT (42-52); Hemoglobin Heart Surgery 9.8 G/DL (14.0-18.0); Ionized Calcium Arterial 1.24 MMOL/L (1.21-1.46); PCO2 Patient Temp Arterial 41.4 MMHG; PH Patient Temp Arterial 7.368; Patient Temperature 37 CELCIUS; Potassium Heart/CVR 3.8 MMOL/L (3.5-5.1); Sodium Heart/CVR 139 MMOL/L (135-145)
[2021-01-05] MEDS ORDERED: SEVOFLURANE 1 UNIT/15 MINUTE INH ONE (12:30)
[2021-01-05] MEDS ORDERED: CALCIUM CHLORIDE 1,000 MG/10 ML SYRINGE IV ONE (12:36)
[2021-01-05] MEDS ORDERED: MAGNESIUM SULF RIDER 2 GM/50 ML PREMIX IV PRN (13:13)
[2021-01-05] MEDS ORDERED: DEXTROSE 50% 25 GM/50 ML VIAL IV PRN ×3 (13:13→18:25)
[2021-01-05] MEDS ORDERED: VECURONIUM 10 MG VIAL IV PRN ×2 (13:13)
[2021-01-05] MEDS ORDERED: MAGNESIUM SULF RIDER 4 GM/100 ML PREMIX IV PRN (13:13)
[2021-01-05] MEDS ORDERED: NITROPRUSSIDE 100 MG in DEXTROSE 5% 250 ML IV PRN (13:13)
[2021-01-05] MEDS ORDERED: INSULIN REGULAR 100 UNIT/ML IV PRN (13:13)
[2021-01-05] MEDS ORDERED: INSULIN REGULAR 100 UNIT/ML IV ONE (13:13)
[2021-01-05] MEDS ORDERED: ACETAMINOPHEN 650 MG SUPP RECTAL PRN (13:13)
[2021-01-05] MEDS ORDERED: MIDAZOLAM 2 MG/2 ML VIAL IV PRN (13:13)
[2021-01-05] MEDS ORDERED: PHENYLEPHRINE DRIP 40 MG/250 ML PREMIX IV PRN (13:13)
[2021-01-05] MEDS ORDERED: POTASSIUM CHLORIDE RIDER 20 MEQ/100 ML PREMIX IV PRN (13:13)
[2021-01-05] MEDS ORDERED: POTASSIUM CHLORIDE RIDER 10 MEQ/100 ML PREMIX IV PRN (13:13)
[2021-01-05] MEDS ORDERED: CALCIUM CHLORIDE 1,000 MG/10 ML SYRINGE IV PRN (13:13)
[2021-01-05] MEDS ORDERED: LACTATED RINGERS 250 ML IV PRN (13:13)
[2021-01-05] MEDS ORDERED: MIDAZOLAM 10 MG/2 ML VIAL IV PRN (13:13)
[2021-01-05] MEDS ORDERED: ONDANSETRON 4 MG/2 ML VIAL IV PRN (13:13)
[2021-01-05 13:18] LABS: ABG Base Excess -0.9 MMOL/L (-2.5-2.5); ABG HCO3 23.7 MMOL/L (20-26); ABG PCO2 36.4 MM HG (35-48); ABG PH 7.415 (7.35-7.45); ABG TCO2 21.1 MMOL/L (23-27); Glucose Heart Surgery 147 MG/DL (74-106); Hemoglobin Heart Surgery 10.4 G/DL (14.0-18.0); Potassium Heart/CVR 3.6 MMOL/L (3.5-5.1)
[2021-01-05 13:29] LABS: Basophils % 0.3 % (0.0-0.8); Eosinophils # 0.1 10*3/uL (0.0-0.87); Eosinophils % 0.9 % (0.00-10.9); Hematocrit 30.6 VOL% (42.0-52.0); Hemoglobin 10.3 GM/DL (14.0-18.0); Immature Granulocytes % 0.6 %; Immature Granulocytes Absolute 0.07 #; Lymphocytes # 1.5 10*3/uL (1.4-4.0); Mean Corpuscular HGB Conc 33.7 GM/DL (32-36); Mean Corpuscular Volume 86.7 FL (87-102); Mean Platelet Volume 11.7 FL (9.6-12.0); Monocytes % 5.4 % (1.7-12.7); Neutrophils % 78.8 % (38.7-73.9); Platelet Count 109 T/CUMM (130-400); Red Blood Count 3.53 MC/CUMM (3.8-5.5); Red Cell Distribution Width 14.5 % (9.3-17.3); White Blood Count 10.9 T/CUMM (4-12)
[2021-01-05] MEDS ORDERED: SODIUM CHLORIDE 0.45% 1,000 ML IV SCH ×2 (13:30)
[2021-01-05] MEDS ORDERED: INSULIN REGULAR DRIP 100 ML IV SCH (13:30)
[2021-01-05 13:33] LABS: INR 1.3; PT Patient Result 14.4 SECS (10.5-12.0); Partial Thromboplastin Time 29.6 SECS (23.9-33.8)
[2021-01-05 13:50] LABS: Albumin 2.7 G/DL (3.4-5.0); Bilirubin,Total 1.3 MG/DL (0.20-1.00); Calcium 8.3 MG/DL (8.5-10.1); Osmolality,Calculated 291.7 MOS/KG (273-304); Potassium 3.7 MMOL/L (3.5-5.1)
[2021-01-05 13:52] LABS: CKMB % 10.8 %
[2021-01-05 14:05] LABS: High Sensitive Troponin I* 14032.6 ng/L (0-78)
[2021-01-05] MEDS: ALBUMIN 5% 12.5 GM/250 ML VIAL IV PRN ×4 (14:37→23:05)
[2021-01-05] MEDS ORDERED: DOBUTamine 500 MG/250 ML PREMIX IV ONE (14:52)
[2021-01-05] MEDS ORDERED: SODIUM CHLORIDE 0.9% 1,000 ML IV PRN (14:53)
[2021-01-05] MEDS ORDERED: DOBUTamine 500 MG/250 ML PREMIX IV SCH (14:54)
[2021-01-05 15:29] LABS: ABG Base Excess -1.5 MMOL/L (-2.5-2.5); ABG HCO3 23.1 MMOL/L (20-26); ABG Oxygen Saturation 99.5 % (95-100); ABG PCO2 36.9 MM HG (35-48); ABG PH 7.401 (7.35-7.45); ABG TCO2 20.9 MMOL/L (23-27); Glucose Heart Surgery 188 MG/DL (74-106); Hematocrit Heart Surgery 29.5 PERCENT (42-52); Hemoglobin Heart Surgery 9.5 G/DL (14.0-18.0); Potassium Heart/CVR 4.2 MMOL/L (3.5-5.1)
[2021-01-05] MEDS ORDERED: LACTATED RINGERS 1,000 ML IV PRN (15:41)
[2021-01-05] MEDS ORDERED: GLUCAGON 1 MG VIAL IM PRN (18:25)
[2021-01-05] MEDS: SODIUM CHLORIDE 0.9% 1,000 ML IV SCH (18:42)
[2021-01-05] MEDS: MORPHINE 10 MG/1 ML VIAL IV PRN ×3 (18:59→23:37)
[2021-01-05 19:22] LABS: ABG Base Excess -0.8 MMOL/L (-2.5-2.5); ABG HCO3 23.8 MMOL/L (20-26); ABG Oxygen Saturation 99.3 % (95-100); ABG PCO2 40.8 MM HG (35-48); ABG PH 7.381 (7.35-7.45); ABG TCO2 22.3 MMOL/L (23-27); Glucose Heart Surgery 184 MG/DL (74-106); Hematocrit Heart Surgery 28.3 PERCENT (42-52); Hemoglobin Heart Surgery 9.1 G/DL (14.0-18.0); Potassium Heart/CVR 4.1 MMOL/L (3.5-5.1)
[2021-01-05] MEDS ORDERED: NITROGLYCERIN DRIP 50 MG/250 ML BOTTLE IV PRN (19:35)
[2021-01-05] MEDS ORDERED: INSULIN REGULAR 100 UNIT/ML SUBCUT SCH (20:00)
[2021-01-05] MEDS: INSULIN REGULAR 100 UNIT/ML SUBCUT SCH ×2 (20:10→23:47)
[2021-01-05 21:14] LABS: ABG Base Excess -1.6 MMOL/L (-2.5-2.5); ABG HCO3 23.3 MMOL/L (20-26); ABG PCO2 40.2 MM HG (35-48); ABG PH 7.381 (7.35-7.45); ABG TCO2 24.5 MMOL/L (23-27); Glucose Heart Surgery 163 MG/DL (74-106); Hemoglobin Heart Surgery 11.2 G/DL (14.0-18.0)
[2021-01-05] MEDS: CEFUROXIME INJ 1,500 MG in SODIUM CHLORIDE 0.9% 100 ML IV SCH (21:17)
[2021-01-05 23:03] LABS: CKMB % 7.1 %; High Sensitive Troponin I* 8946.3 ng/L (0-78)
[2021-01-05 23:10] LABS: ABG Base Excess -1.3 MMOL/L (-2.5-2.5); ABG HCO3 23.3 MMOL/L (20-26); ABG Oxygen Saturation 98.3 % (95-100); ABG PCO2 41.1 MM HG (35-48); ABG PH 7.371 (7.35-7.45); ABG TCO2 21.9 MMOL/L (23-27); Glucose Heart Surgery 162 MG/DL (74-106); Hematocrit Heart Surgery 29.5 PERCENT (42-52); Hemoglobin Heart Surgery 9.5 G/DL (14.0-18.0)
[2021-01-05] MEDS ORDERED: FUROSEMIDE 40 MG/4 ML VIAL IV ONE (23:46)
[2021-01-06 00:49] LABS: ABG Base Excess -1.4 MMOL/L (-2.5-2.5); ABG HCO3 23.3 MMOL/L (20-26); ABG Oxygen Saturation 97.3 % (95-100); ABG PCO2 38.7 MM HG (35-48); ABG PH 7.397 (7.35-7.45); ABG TCO2 24.5 MMOL/L (23-27); Glucose Heart Surgery 156 MG/DL (74-106); Hemoglobin Heart Surgery 10.2 G/DL (14.0-18.0); Potassium Heart/CVR 4.1 MMOL/L (3.5-5.1)
[2021-01-06] MEDS ORDERED: DEXMEDETOMIDINE 400 MCG in SODIUM CHLORIDE 0.9% 96 ML IV PRN (01:10)
[2021-01-06 02:04] LABS: ABG Base Excess -1.2 MMOL/L (-2.5-2.5); ABG HCO3 23.4 MMOL/L (20-26); ABG Oxygen Saturation 98.2 % (95-100); ABG PCO2 40.2 MM HG (35-48); ABG TCO2 21.7 MMOL/L (23-27); Glucose Heart Surgery 162 MG/DL (74-106); Hematocrit Heart Surgery 30.4 PERCENT (42-52); Hemoglobin Heart Surgery 9.8 G/DL (14.0-18.0); Potassium Heart/CVR 4.1 MMOL/L (3.5-5.1)
[2021-01-06 03:39] LABS: Albumin 3.4 G/DL (3.4-5.0); Bilirubin,Direct 0.34 MG/DL (0.0-0.20); Bilirubin,Total 1.4 MG/DL (0.20-1.00); Calcium 8.2 MG/DL (8.5-10.1); Osmolality,Calculated 292.7 MOS/KG (273-304); Potassium 4.1 MMOL/L (3.5-5.1); Total Protein 5.9 G/DL (6.4-8.2)
[2021-01-06 03:44] LABS: Basophils % 0.1 % (0.0-0.8); Hemoglobin 9.9 GM/DL (14.0-18.0); Immature Granulocytes % 0.3 %; Immature Granulocytes Absolute 0.03 #; Lymphocytes # 0.7 10*3/uL (1.4-4.0); Lymphocytes % 6.6 % (21.2-54.2); Mean Corpuscular Volume 87.7 FL (87-102); Mean Platelet Volume 11.4 FL (9.6-12.0); Monocytes % 6.2 % (1.7-12.7); Neutrophils % 86.8 % (38.7-73.9); Platelet Count 87 T/CUMM (130-400); Red Blood Count 3.42 MC/CUMM (3.8-5.5); Red Cell Distribution Width 14.5 % (9.3-17.3); White Blood Count 10.3 T/CUMM (4-12)
[2021-01-06 04:04] LABS: Hypochromasia 1+; Microcytosis 1+; Platelet Estimate Decreased
[2021-01-06 04:28] LABS: ABG Base Excess -0.1 MMOL/L (-2.5-2.5); ABG HCO3 24.4 MMOL/L (20-26); ABG Oxygen Saturation 98.2 % (95-100); ABG PCO2 37.4 MM HG (35-48); ABG PH 7.419 (7.35-7.45); ABG PO2 99.4 MM HG (80-95); Glucose Heart Surgery 150 MG/DL (74-106); Hematocrit Heart Surgery 30.5 PERCENT (42-52); Hemoglobin Heart Surgery 9.8 G/DL (14.0-18.0); Potassium Heart/CVR 4.1 MMOL/L (3.5-5.1)
[2021-01-06] MEDS: INSULIN REGULAR 100 UNIT/ML SUBCUT SCH ×6 (04:37→20:53)
[2021-01-06 05:53] LABS: ABG Base Excess -0.4 MMOL/L (-2.5-2.5); ABG HCO3 24.1 MMOL/L (20-26); ABG Oxygen Saturation 98.5 % (95-100); ABG PCO2 41.1 MM HG (35-48); ABG PH 7.385 (7.35-7.45); ABG TCO2 22.5 MMOL/L (23-27); Glucose Heart Surgery 149 MG/DL (74-106); Hematocrit Heart Surgery 30.2 PERCENT (42-52); Hemoglobin Heart Surgery 9.8 G/DL (14.0-18.0)
[2021-01-06 06:35] LABS: CKMB % 4.6 %; High Sensitive Troponin I* 7697.3 ng/L (0-78)
[2021-01-06] MEDS: CEFUROXIME INJ 1,500 MG in SODIUM CHLORIDE 0.9% 100 ML IV SCH (09:35)
[2021-01-06] MEDS: CHLORHEXIDINE 0.12% ORAL RINSE 60 ML BOTTLE SWISH/SPIT SCH ×2 (09:35→20:53)
[2021-01-06] MEDS ORDERED: amLODIPine 5 MG TABLET PO ONE (10:26)
[2021-01-06] MEDS: MORPHINE 10 MG/1 ML VIAL IV PRN (11:18)
[2021-01-06] MEDS: carvediloL 3.125 MG TABLET PO SCH ×2 (11:20→20:53)
[2021-01-06] MEDS: ASCORBIC ACID 500 MG TABLET PO SCH ×2 (11:44→20:53)
[2021-01-06] MEDS ORDERED: MELOXICAM 7.5 MG TABLET PO PRN (13:03)
[2021-01-06] MEDS ORDERED: NITROGLYCERIN SL 0.4 MG TABLET SL PRN (13:03)
[2021-01-06] MEDS ORDERED: DEXTROSE 50% 25 GM/50 ML VIAL IV PRN ×2 (13:03)
[2021-01-06] MEDS ORDERED: MAGNESIUM HYDROXIDE SUSP 30 ML UDCUP PO PRN (13:03)
[2021-01-06] MEDS ORDERED: ZALEPLON 5 MG CAPSULE PO PRN (13:03)
[2021-01-06] MEDS ORDERED: MAGNESIUM SULF RIDER 2 GM/50 ML PREMIX IV PRN (13:03)
[2021-01-06] MEDS ORDERED: GLUCAGON 1 MG VIAL IM PRN ×2 (13:03)
[2021-01-06] MEDS ORDERED: SODIUM CHLOR 0.45% KCL 20 MEQ 20 MEQ/1,000 ML BAG IV SCH (13:03)
[2021-01-06] MEDS ORDERED: POTASSIUM CHLORIDE 20 MEQ TABLET PO PRN (13:03)
[2021-01-06] MEDS ORDERED: ALUMINUM/MAGNES/SIMETH MAX STR 30 ML UDCUP PO PRN (13:03)
[2021-01-06] MEDS ORDERED: ONDANSETRON 4 MG/2 ML VIAL IV PRN (13:03)
[2021-01-06] MEDS ORDERED: MAGNESIUM SULF RIDER 4 GM/100 ML PREMIX IV PRN (13:03)
[2021-01-06] MEDS ORDERED: ACETAMINOPHEN 325 MG TABLET PO PRN (13:03)
[2021-01-06] MEDS ORDERED: CYCLOBENZAPRINE 10 MG TABLET PO PRN (13:06)
[2021-01-06] MEDS: KETOROLAC 30 MG/1 ML VIAL IV PRN (13:31)
[2021-01-06] MEDS: ATORVASTATIN 40 MG TABLET PO SCH (17:37)
[2021-01-06] MEDS: oxyCODONE/ACETAMINOPHEN 5-325 MG TABLET PO PRN (20:52)
[2021-01-06] MEDS ORDERED: carvediloL 3.125 MG TABLET PO SCH (21:00)
[2021-01-06] MEDS ORDERED: ATORVASTATIN 40 MG TABLET PO SCH (21:00)
[2021-01-07] MEDS: KETOROLAC 30 MG/1 ML VIAL IV PRN ×2 (04:12→20:25)
[2021-01-07 04:51] LABS: Basophils % 0.1 % (0.0-0.8); Hematocrit 29.9 VOL% (42.0-52.0); Hemoglobin 9.6 GM/DL (14.0-18.0); Immature Granulocytes % 0.9 %; Immature Granulocytes Absolute 0.12 #; Lymphocytes # 1.2 10*3/uL (1.4-4.0); Lymphocytes % 8.9 % (21.2-54.2); Mean Corpuscular HGB Conc 32.1 GM/DL (32-36); Mean Corpuscular Volume 90.3 FL (87-102); Mean Platelet Volume 12.1 FL (9.6-12.0); Monocytes % 6.9 % (1.7-12.7); Neutrophils % 83.2 % (38.7-73.9); Platelet Count 89 T/CUMM (130-400); Red Blood Count 3.31 MC/CUMM (3.8-5.5); Red Cell Distribution Width 15.2 % (9.3-17.3); White Blood Count 13.3 T/CUMM (4-12)
[2021-01-07 05:19] LABS: Albumin 3.2 G/DL (3.4-5.0); Bilirubin,Direct 0.19 MG/DL (0.0-0.20); Bilirubin,Indirect 0.6 MG/DL (0.0-1.0); Bilirubin,Total 0.8 MG/DL (0.20-1.00); CKMB % 1.4 %; Calcium 8.2 MG/DL (8.5-10.1); High Sensitive Troponin I* 3672.2 ng/L (0-78); Osmolality,Calculated 281.5 MOS/KG (273-304); Potassium 4.9 MMOL/L (3.5-5.1); Total Protein 5.9 G/DL (6.4-8.2)
[2021-01-07] MEDS ORDERED: FUROSEMIDE 40 MG/4 ML VIAL IV ONE (06:00)
[2021-01-07] MEDS: INSULIN REGULAR 100 UNIT/ML SUBCUT SCH ×4 (08:43→21:20)
[2021-01-07] MEDS: amLODIPine 5 MG TABLET PO SCH (08:46)
[2021-01-07] MEDS: SOLIFENACIN 5 MG TABLET PO SCH (08:46)
[2021-01-07] MEDS: FERROUS SULFATE 325 MG TABLET PO SCH (08:46)
[2021-01-07] MEDS: CHLORHEXIDINE 0.12% ORAL RINSE 60 ML BOTTLE SWISH/SPIT SCH ×2 (08:47→20:09)
[2021-01-07] MEDS: carvediloL 3.125 MG TABLET PO SCH ×2 (08:47→20:09)
[2021-01-07] MEDS: PANTOPRAZOLE 40 MG TABLET PO SCH (08:47)
[2021-01-07] MEDS: DOCUSATE SODIUM 100 MG CAPSULE PO SCH (08:47)
[2021-01-07] MEDS: ASCORBIC ACID 500 MG TABLET PO SCH ×2 (08:47→20:07)
[2021-01-07] MEDS: ASPIRIN EC 81 MG TABLET PO SCH (08:48)
[2021-01-07] MEDS ORDERED: ASPIRIN EC 81 MG TABLET PO SCH (09:00)
[2021-01-07] MEDS: oxyCODONE/ACETAMINOPHEN 5-325 MG TABLET PO PRN ×2 (12:17→20:08)
[2021-01-07] MEDS: MORPHINE 2 MG/1 ML SYRINGE IV PRN (14:33)
[2021-01-07] MEDS: ATORVASTATIN 40 MG TABLET PO SCH (16:13)
[2021-01-08 05:46] LABS: Basophils % 0.1 % (0.0-0.8); Eosinophils % 0.2 % (0.00-10.9); Hematocrit 29.6 VOL% (42.0-52.0); Hemoglobin 9.4 GM/DL (14.0-18.0); Immature Granulocytes % 0.9 %; Immature Granulocytes Absolute 0.12 #; Lymphocytes # 1.3 10*3/uL (1.4-4.0); Lymphocytes % 10.5 % (21.2-54.2); Mean Corpuscular HGB Conc 31.8 GM/DL (32-36); Mean Corpuscular Volume 91.6 FL (87-102); Mean Platelet Volume 12.8 FL (9.6-12.0); Monocytes % 8.7 % (1.7-12.7); Neutrophils % 79.6 % (38.7-73.9); Platelet Count 93 T/CUMM (130-400); Red Blood Count 3.23 MC/CUMM (3.8-5.5); Red Cell Distribution Width 14.9 % (9.3-17.3); White Blood Count 12.8 T/CUMM (4-12)
[2021-01-08 05:56] LABS: Alanine Aminotransferase 21 U/L (16-61); Albumin 2.9 G/DL (3.4-5.0); Alkaline Phosphatase 63 U/L (45-117); Aspartate Amino Transferase 32 U/L (0-37); Bilirubin,Indirect 0.4 MG/DL (0.0-1.0); Blood Urea Nitrogen 24 MG/DL (7-18); Calcium 8.5 MG/DL (8.5-10.1); Estimated Glom Filtration Rate 126 ML/MIN; Glucose 108 MG/DL (74-106)
[2021-01-08 05:59] LABS: Osmolality,Calculated 272.2 MOS/KG (273-304); Potassium 4.2 MMOL/L (3.5-5.1); Sodium 134 MMOL/L (136-145)
[2021-01-08 06:01] LABS: Carbon Dioxide 30 MMOL/L (21-32)
[2021-01-08] MEDS: MORPHINE 2 MG/1 ML SYRINGE IV PRN (06:22)
[2021-01-08 06:23] LABS: Hypochromasia 1+; Microcytosis 1+; Ovalocytes Slight; Platelet Estimate Decreased
[2021-01-08] MEDS: ASPIRIN EC 81 MG TABLET PO SCH (08:39)
[2021-01-08] MEDS: FERROUS SULFATE 325 MG TABLET PO SCH (08:39)
[2021-01-08] MEDS: SOLIFENACIN 5 MG TABLET PO SCH (08:39)
[2021-01-08] MEDS: ASCORBIC ACID 500 MG TABLET PO SCH ×2 (08:39→20:35)
[2021-01-08] MEDS: PANTOPRAZOLE 40 MG TABLET PO SCH (08:39)
[2021-01-08] MEDS: amLODIPine 5 MG TABLET PO SCH (08:39)
[2021-01-08] MEDS: carvediloL 3.125 MG TABLET PO SCH ×2 (08:40→20:35)
[2021-01-08] MEDS: DOCUSATE SODIUM 100 MG CAPSULE PO SCH (08:40)
[2021-01-08] MEDS: CHLORHEXIDINE 0.12% ORAL RINSE 60 ML BOTTLE SWISH/SPIT SCH ×2 (08:40→20:34)
[2021-01-08] MEDS: KETOROLAC 30 MG/1 ML VIAL IV PRN ×3 (08:43→22:02)
[2021-01-08] MEDS: INSULIN REGULAR 100 UNIT/ML SUBCUT SCH ×4 (08:58→22:03)
[2021-01-08] MEDS ORDERED: amLODIPine 5 MG TABLET PO ONE (10:30)
[2021-01-08] MEDS: oxyCODONE/ACETAMINOPHEN 5-325 MG TABLET PO PRN (12:23)
[2021-01-08] MEDS: ATORVASTATIN 40 MG TABLET PO SCH (17:11)
[2021-01-09 06:36] LABS: Basophils % 0.2 % (0.0-0.8); Eosinophils # 0.2 10*3/uL (0.0-0.87); Eosinophils % 1.8 % (0.00-10.9); Hematocrit 31.7 VOL% (42.0-52.0); Hemoglobin 10.3 GM/DL (14.0-18.0); Lymphocytes # 2.4 10*3/uL (1.4-4.0); Lymphocytes % 23.4 % (21.2-54.2); Mean Corpuscular HGB Conc 32.5 GM/DL (32-36); Mean Corpuscular Volume 91.1 FL (87-102); Mean Platelet Volume 11.9 FL (9.6-12.0); Neutrophils % 66.6 % (38.7-73.9); Platelet Count 114 T/CUMM (130-400); Red Blood Count 3.48 MC/CUMM (3.8-5.5); Red Cell Distribution Width 14.7 % (9.3-17.3); White Blood Count 10.3 T/CUMM (4-12)
[2021-01-09 06:58] LABS: Calcium 8.6 MG/DL (8.5-10.1); Osmolality,Calculated 282.5 MOS/KG (273-304); Potassium 3.6 MMOL/L (3.5-5.1)
[2021-01-09] MEDS ORDERED: POTASSIUM CHLORIDE 20 MEQ TABLET PO ONE (07:17)
[2021-01-09] MEDS ORDERED: amLODIPine 5 MG TABLET PO SCH (09:00)
[2021-01-09] MEDS ORDERED: carvediloL 6.25 MG TABLET PO SCH (09:00)
[2021-01-09] MEDS ORDERED: amLODIPine 10 MG TABLET PO SCH (09:00)
[2021-01-09] MEDS: PANTOPRAZOLE 40 MG TABLET PO SCH (09:20)
[2021-01-09] MEDS: ASCORBIC ACID 500 MG TABLET PO SCH ×2 (09:20→20:12)
[2021-01-09] MEDS: LEVOFLOXACIN 500 MG TABLET PO SCH (09:20)
[2021-01-09] MEDS: FERROUS SULFATE 325 MG TABLET PO SCH (09:21)
[2021-01-09] MEDS: AMIODARONE 200 MG TABLET PO SCH ×2 (09:21→20:12)
[2021-01-09] MEDS: DOCUSATE SODIUM 100 MG CAPSULE PO SCH (09:21)
[2021-01-09] MEDS: ASPIRIN EC 81 MG TABLET PO SCH (09:21)
[2021-01-09] MEDS: SOLIFENACIN 5 MG TABLET PO SCH (09:21)
[2021-01-09] MEDS: CHLORHEXIDINE 0.12% ORAL RINSE 60 ML BOTTLE SWISH/SPIT SCH ×2 (09:22→20:12)
[2021-01-09] MEDS: INSULIN REGULAR 100 UNIT/ML SUBCUT SCH ×4 (09:22→22:26)
[2021-01-09] MEDS: APIXABAN 5 MG TABLET PO SCH ×2 (09:27→20:12)
[2021-01-09] MEDS: KETOROLAC 30 MG/1 ML VIAL IV PRN ×2 (09:31→20:14)
[2021-01-09] MEDS: ALBUTEROL/IPRATROPIUM 3 ML NEB RESP TX SCH ×2 (13:31→20:51)
[2021-01-09] MEDS: ATORVASTATIN 40 MG TABLET PO SCH (16:05)
[2021-01-09] MEDS: carvediloL 3.125 MG TABLET PO SCH (20:12)
[2021-01-10] MEDS: ALBUTEROL/IPRATROPIUM 3 ML NEB RESP TX SCH ×4 (02:02→19:31)
[2021-01-10 06:37] LABS: Basophils % 0.2 % (0.0-0.8); Eosinophils # 0.3 10*3/uL (0.0-0.87); Eosinophils % 3.1 % (0.00-10.9); Hematocrit 30.7 VOL% (42.0-52.0); Hemoglobin 9.9 GM/DL (14.0-18.0); Immature Granulocytes % 0.7 %; Immature Granulocytes Absolute 0.07 #; Lymphocytes # 2.2 10*3/uL (1.4-4.0); Lymphocytes % 22.7 % (21.2-54.2); Mean Corpuscular HGB Conc 32.2 GM/DL (32-36); Mean Corpuscular Volume 90.3 FL (87-102); Monocytes % 8.3 % (1.7-12.7); Platelet Count 143 T/CUMM (130-400); Red Cell Distribution Width 14.6 % (9.3-17.3); White Blood Count 9.7 T/CUMM (4-12)
[2021-01-10 06:56] LABS: Alanine Aminotransferase 37 U/L (16-61); Albumin 2.7 G/DL (3.4-5.0); Alkaline Phosphatase 61 U/L (45-117); Aspartate Amino Transferase 26 U/L (0-37); Blood Urea Nitrogen 27 MG/DL (7-18); Calcium 8.8 MG/DL (8.5-10.1); Carbon Dioxide 32 MMOL/L (21-32); Estimated Glom Filtration Rate 127 ML/MIN; Glucose 102 MG/DL (74-106); Osmolality,Calculated 279.7 MOS/KG (273-304); Potassium 3.9 MMOL/L (3.5-5.1); Sodium 138 MMOL/L (136-145); Total Protein 5.8 G/DL (6.4-8.2)
[2021-01-10] MEDS: amLODIPine 10 MG TABLET PO SCH (09:00)
[2021-01-10] MEDS: LEVOFLOXACIN 500 MG TABLET PO SCH (09:00)
[2021-01-10] MEDS: FERROUS SULFATE 325 MG TABLET PO SCH (09:00)
[2021-01-10] MEDS: ASCORBIC ACID 500 MG TABLET PO SCH ×2 (09:00→21:10)
[2021-01-10] MEDS: PANTOPRAZOLE 40 MG TABLET PO SCH (09:00)
[2021-01-10] MEDS: ASPIRIN EC 81 MG TABLET PO SCH (09:00)
[2021-01-10] MEDS: SOLIFENACIN 5 MG TABLET PO SCH (09:00)
[2021-01-10] MEDS: DOCUSATE SODIUM 100 MG CAPSULE PO SCH (09:00)
[2021-01-10] MEDS: carvediloL 3.125 MG TABLET PO SCH ×2 (09:01→21:10)
[2021-01-10] MEDS: APIXABAN 5 MG TABLET PO SCH ×2 (09:01→21:10)
[2021-01-10] MEDS: AMIODARONE 200 MG TABLET PO SCH ×2 (09:01→21:10)
[2021-01-10] MEDS: CHLORHEXIDINE 0.12% ORAL RINSE 60 ML BOTTLE SWISH/SPIT SCH ×2 (09:01→21:10)
[2021-01-10] MEDS: INSULIN REGULAR 100 UNIT/ML SUBCUT SCH ×4 (10:25→21:11)
[2021-01-10] MEDS ORDERED: FUROSEMIDE 40 MG/4 ML VIAL IV ONE (12:27)
[2021-01-10] MEDS: DIGOXIN 0.125 MG TABLET PO SCH (13:49)
[2021-01-10] MEDS ORDERED: SODIUM PHOSPHATE ENEMA 133 ML BOTTLE RECTAL PRN (13:54)
[2021-01-10] MEDS: ATORVASTATIN 40 MG TABLET PO SCH (16:51)
[2021-01-11] MEDS: ALBUTEROL/IPRATROPIUM 3 ML NEB RESP TX SCH ×4 (00:39→19:10)
[2021-01-11 04:25] LABS: Basophils % 0.2 % (0.0-0.8); Eosinophils # 0.3 10*3/uL (0.0-0.87); Eosinophils % 2.8 % (0.00-10.9); Hematocrit 30.7 VOL% (42.0-52.0); Immature Granulocytes % 0.9 %; Lymphocytes # 2.2 10*3/uL (1.4-4.0); Mean Corpuscular HGB Conc 32.6 GM/DL (32-36); Mean Corpuscular Volume 90.3 FL (87-102); Mean Platelet Volume 10.4 FL (9.6-12.0); Monocytes % 9.2 % (1.7-12.7); Neutrophils % 66.9 % (38.7-73.9); Platelet Count 176 T/CUMM (130-400); Red Cell Distribution Width 14.3 % (9.3-17.3); White Blood Count 10.8 T/CUMM (4-12)
[2021-01-11 04:55] LABS: Alanine Aminotransferase 31 U/L (16-61); Albumin 2.7 G/DL (3.4-5.0); Alkaline Phosphatase 65 U/L (45-117); Aspartate Amino Transferase 19 U/L (0-37); Blood Urea Nitrogen 28 MG/DL (7-18); Calcium 8.7 MG/DL (8.5-10.1); Carbon Dioxide 29 MMOL/L (21-32); Estimated Glom Filtration Rate 120 ML/MIN; Glucose 100 MG/DL (74-106); Osmolality,Calculated 284.4 MOS/KG (273-304); Potassium 4.2 MMOL/L (3.5-5.1); Sodium 140 MMOL/L (136-145); Total Protein 5.9 G/DL (6.4-8.2)
[2021-01-11] MEDS ORDERED: SODIUM CHLORIDE 0.9% 500 ML IV SCH (06:00)
[2021-01-11] MEDS ORDERED: LIDOCAINE 2% 5 ML VIAL ONE (08:00)
[2021-01-11] MEDS ORDERED: propofoL 200 MG/20 ML VIAL IV ONE ×2 (08:00→13:15)
[2021-01-11] MEDS: ASPIRIN EC 81 MG TABLET PO SCH (09:47)
[2021-01-11] MEDS: DOCUSATE SODIUM 100 MG CAPSULE PO SCH (09:48)
[2021-01-11] MEDS: APIXABAN 5 MG TABLET PO SCH ×2 (09:48→22:08)
[2021-01-11] MEDS: SOLIFENACIN 5 MG TABLET PO SCH (09:48)
[2021-01-11] MEDS: AMIODARONE 200 MG TABLET PO SCH ×2 (09:48→22:08)
[2021-01-11] MEDS: PANTOPRAZOLE 40 MG TABLET PO SCH (09:48)
[2021-01-11] MEDS: carvediloL 3.125 MG TABLET PO SCH ×2 (09:48→22:08)
[2021-01-11] MEDS: ASCORBIC ACID 500 MG TABLET PO SCH ×2 (09:48→22:08)
[2021-01-11] MEDS: amLODIPine 10 MG TABLET PO SCH (09:48)
[2021-01-11] MEDS: LEVOFLOXACIN 500 MG TABLET PO SCH (09:49)
[2021-01-11] MEDS: FERROUS SULFATE 325 MG TABLET PO SCH (09:49)
[2021-01-11] MEDS: CHLORHEXIDINE 0.12% ORAL RINSE 60 ML BOTTLE SWISH/SPIT SCH ×2 (09:51→22:08)
[2021-01-11] MEDS: INSULIN REGULAR 100 UNIT/ML SUBCUT SCH ×4 (09:52→22:09)
[2021-01-11] MEDS ORDERED: fentaNYL 100 MCG/2 ML VIAL ONE (13:16)
[2021-01-11] MEDS ORDERED: MIDAZOLAM 2 MG/2 ML VIAL ONE (13:16)
[2021-01-11] MEDS: DIGOXIN 0.125 MG TABLET PO SCH (14:01)
[2021-01-11] MEDS: ATORVASTATIN 40 MG TABLET PO SCH (16:39)
[2021-01-12] MEDS: ALBUTEROL/IPRATROPIUM 3 ML NEB RESP TX SCH ×4 (00:40→19:22)
[2021-01-12 06:01] LABS: Calcium 8.5 MG/DL (8.5-10.1); Osmolality,Calculated 275.8 MOS/KG (273-304); Potassium 4.1 MMOL/L (3.5-5.1)
[2021-01-12] MEDS: ASPIRIN EC 81 MG TABLET PO SCH (08:52)
[2021-01-12] MEDS: DOCUSATE SODIUM 100 MG CAPSULE PO SCH (08:52)
[2021-01-12] MEDS: ASCORBIC ACID 500 MG TABLET PO SCH ×2 (08:52→20:44)
[2021-01-12] MEDS: APIXABAN 5 MG TABLET PO SCH ×2 (08:52→20:44)
[2021-01-12] MEDS: INSULIN REGULAR 100 UNIT/ML SUBCUT SCH ×4 (08:52→20:45)
[2021-01-12] MEDS: SOLIFENACIN 5 MG TABLET PO SCH (08:52)
[2021-01-12] MEDS: PANTOPRAZOLE 40 MG TABLET PO SCH (08:53)
[2021-01-12] MEDS: FERROUS SULFATE 325 MG TABLET PO SCH (08:53)
[2021-01-12] MEDS: carvediloL 3.125 MG TABLET PO SCH ×2 (08:53→20:43)
[2021-01-12] MEDS: LEVOFLOXACIN 500 MG TABLET PO SCH (08:53)
[2021-01-12] MEDS: AMIODARONE 200 MG TABLET PO SCH ×2 (08:53→20:43)
[2021-01-12] MEDS: amLODIPine 10 MG TABLET PO SCH (08:53)
[2021-01-12] MEDS: CHLORHEXIDINE 0.12% ORAL RINSE 60 ML BOTTLE SWISH/SPIT SCH ×2 (08:56→20:44)
[2021-01-12] MEDS ORDERED: FUROSEMIDE 40 MG/4 ML VIAL IV ONE (09:01)
[2021-01-12] MEDS: DIGOXIN 0.125 MG TABLET PO SCH (12:34)
[2021-01-12] MEDS: ATORVASTATIN 40 MG TABLET PO SCH (16:58)
[2021-01-13] MEDS: ALBUTEROL/IPRATROPIUM 3 ML NEB RESP TX SCH ×4 (00:40→19:10)
[2021-01-13 04:46] LABS: Basophils % 0.3 % (0.0-0.8); Eosinophils # 0.3 10*3/uL (0.0-0.87); Eosinophils % 3.4 % (0.00-10.9); Immature Granulocytes % 1.3 %; Immature Granulocytes Absolute 0.12 #; Lymphocytes # 1.7 10*3/uL (1.4-4.0); Lymphocytes % 18.2 % (21.2-54.2); Mean Corpuscular HGB Conc 32.3 GM/DL (32-36); Mean Corpuscular Volume 90.9 FL (87-102); Mean Platelet Volume 10.7 FL (9.6-12.0); Monocytes % 9.3 % (1.7-12.7); Neutrophils % 67.5 % (38.7-73.9); Platelet Count 225 T/CUMM (130-400); Red Blood Count 3.41 MC/CUMM (3.8-5.5); Red Cell Distribution Width 14.1 % (9.3-17.3); White Blood Count 9.5 T/CUMM (4-12)
[2021-01-13 05:11] LABS: Albumin 2.6 G/DL (3.4-5.0); Bilirubin,Total 1.2 MG/DL (0.20-1.00); Calcium 8.7 MG/DL (8.5-10.1); Osmolality,Calculated 281.5 MOS/KG (273-304); Potassium 3.9 MMOL/L (3.5-5.1); Total Protein 6.2 G/DL (6.4-8.2)
[2021-01-13] MEDS: INSULIN REGULAR 100 UNIT/ML SUBCUT SCH ×4 (09:21→22:07)
[2021-01-13] MEDS: FERROUS SULFATE 325 MG TABLET PO SCH (09:24)
[2021-01-13] MEDS: ASCORBIC ACID 500 MG TABLET PO SCH ×2 (09:24→20:33)
[2021-01-13] MEDS: amLODIPine 10 MG TABLET PO SCH (09:24)
[2021-01-13] MEDS: SOLIFENACIN 5 MG TABLET PO SCH (09:24)
[2021-01-13] MEDS: ASPIRIN EC 81 MG TABLET PO SCH (09:24)
[2021-01-13] MEDS: LEVOFLOXACIN 500 MG TABLET PO SCH (09:25)
[2021-01-13] MEDS: DOCUSATE SODIUM 100 MG CAPSULE PO SCH (09:25)
[2021-01-13] MEDS: PANTOPRAZOLE 40 MG TABLET PO SCH (09:25)
[2021-01-13] MEDS: CHLORHEXIDINE 0.12% ORAL RINSE 60 ML BOTTLE SWISH/SPIT SCH ×2 (09:25→20:37)
[2021-01-13] MEDS: carvediloL 3.125 MG TABLET PO SCH ×2 (09:25→20:34)
[2021-01-13] MEDS: AMIODARONE 200 MG TABLET PO SCH ×2 (09:43→20:33)
[2021-01-13] MEDS: DIGOXIN 0.125 MG TABLET PO SCH (12:12)
[2021-01-13] MEDS: ATORVASTATIN 40 MG TABLET PO SCH (16:50)
[2021-01-14] MEDS: ALBUTEROL/IPRATROPIUM 3 ML NEB RESP TX SCH ×4 (02:05→19:09)
[2021-01-14 04:46] LABS: Basophils % 0.4 % (0.0-0.8); Eosinophils # 0.3 10*3/uL (0.0-0.87); Eosinophils % 2.6 % (0.00-10.9); Hematocrit 32.2 VOL% (42.0-52.0); Hemoglobin 10.4 GM/DL (14.0-18.0); Immature Granulocytes % 1.3 %; Immature Granulocytes Absolute 0.14 #; Lymphocytes # 1.7 10*3/uL (1.4-4.0); Lymphocytes % 16.2 % (21.2-54.2); Mean Corpuscular HGB Conc 32.3 GM/DL (32-36); Monocytes % 9.7 % (1.7-12.7); Neutrophils % 69.8 % (38.7-73.9); Platelet Count 252 T/CUMM (130-400); Red Blood Count 3.54 MC/CUMM (3.8-5.5); Red Cell Distribution Width 14.2 % (9.3-17.3); White Blood Count 10.5 T/CUMM (4-12)
[2021-01-14 05:14] LABS: Calcium 8.8 MG/DL (8.5-10.1); Osmolality,Calculated 272.1 MOS/KG (273-304); Potassium 4.3 MMOL/L (3.5-5.1)
[2021-01-14] MEDS: INSULIN REGULAR 100 UNIT/ML SUBCUT SCH ×4 (08:38→21:32)
[2021-01-14] MEDS: ASPIRIN EC 81 MG TABLET PO SCH (08:57)
[2021-01-14] MEDS: carvediloL 3.125 MG TABLET PO SCH ×2 (08:57→21:31)
[2021-01-14] MEDS: DOCUSATE SODIUM 100 MG CAPSULE PO SCH (08:57)
[2021-01-14] MEDS: FERROUS SULFATE 325 MG TABLET PO SCH (08:57)
[2021-01-14] MEDS: amLODIPine 10 MG TABLET PO SCH (08:57)
[2021-01-14] MEDS: AMIODARONE 200 MG TABLET PO SCH ×2 (08:57→21:31)
[2021-01-14] MEDS: SOLIFENACIN 5 MG TABLET PO SCH (08:57)
[2021-01-14] MEDS: ASCORBIC ACID 500 MG TABLET PO SCH ×2 (08:58→21:31)
[2021-01-14] MEDS: LEVOFLOXACIN 500 MG TABLET PO SCH (08:58)
[2021-01-14] MEDS: PANTOPRAZOLE 40 MG TABLET PO SCH (08:58)
[2021-01-14] MEDS: methylPREDNISolone SOD SUC 40 MG/1 ML VIAL IV SCH ×2 (08:58→21:31)
[2021-01-14] MEDS: CHLORHEXIDINE 0.12% ORAL RINSE 60 ML BOTTLE SWISH/SPIT SCH ×2 (09:02→21:31)
[2021-01-14] MEDS: DIGOXIN 0.125 MG TABLET PO SCH (13:53)
[2021-01-14] MEDS: ATORVASTATIN 40 MG TABLET PO SCH (16:29)
[2021-01-15] MEDS: ALBUTEROL/IPRATROPIUM 3 ML NEB RESP TX SCH ×4 (00:11→19:37)
[2021-01-15 06:19] LABS: Basophils % 0.1 % (0.0-0.8); Hematocrit 32.5 VOL% (42.0-52.0); Hemoglobin 10.2 GM/DL (14.0-18.0); Immature Granulocytes % 1.1 %; Immature Granulocytes Absolute 0.19 #; Lymphocytes % 6.1 % (21.2-54.2); Mean Corpuscular HGB Conc 31.4 GM/DL (32-36); Mean Corpuscular Volume 90.5 FL (87-102); Mean Platelet Volume 10.6 FL (9.6-12.0); Neutrophils % 89.7 % (38.7-73.9); Platelet Count 286 T/CUMM (130-400); Red Blood Count 3.59 MC/CUMM (3.8-5.5); Red Cell Distribution Width 14.2 % (9.3-17.3); White Blood Count 16.8 T/CUMM (4-12)
[2021-01-15 06:35] LABS: Calcium 9.1 MG/DL (8.5-10.1); Osmolality,Calculated 279.8 MOS/KG (273-304); Potassium 4.6 MMOL/L (3.5-5.1)
[2021-01-15] MEDS: INSULIN REGULAR 100 UNIT/ML SUBCUT SCH ×4 (09:37→20:31)
[2021-01-15] MEDS: methylPREDNISolone SOD SUC 40 MG/1 ML VIAL IV SCH ×2 (09:38→20:31)
[2021-01-15] MEDS: AMIODARONE 200 MG TABLET PO SCH ×2 (09:39→20:31)
[2021-01-15] MEDS: FERROUS SULFATE 325 MG TABLET PO SCH (09:39)
[2021-01-15] MEDS: DOCUSATE SODIUM 100 MG CAPSULE PO SCH (09:39)
[2021-01-15] MEDS: ASCORBIC ACID 500 MG TABLET PO SCH ×2 (09:39→20:31)
[2021-01-15] MEDS: ASPIRIN EC 81 MG TABLET PO SCH (09:39)
[2021-01-15] MEDS: SOLIFENACIN 5 MG TABLET PO SCH (09:39)
[2021-01-15] MEDS: carvediloL 3.125 MG TABLET PO SCH ×2 (09:39→20:31)
[2021-01-15] MEDS: LEVOFLOXACIN 500 MG TABLET PO SCH (09:40)
[2021-01-15] MEDS: CHLORHEXIDINE 0.12% ORAL RINSE 60 ML BOTTLE SWISH/SPIT SCH ×2 (09:40→20:32)
[2021-01-15] MEDS: PANTOPRAZOLE 40 MG TABLET PO SCH (09:40)
[2021-01-15] MEDS: amLODIPine 10 MG TABLET PO SCH (09:40)
[2021-01-15] MEDS: DIGOXIN 0.125 MG TABLET PO SCH (14:07)
[2021-01-15] MEDS: ATORVASTATIN 40 MG TABLET PO SCH (17:10)
[2021-01-16] MEDS: ALBUTEROL/IPRATROPIUM 3 ML NEB RESP TX SCH ×4 (00:22→19:17)
[2021-01-16 06:49] LABS: Basophils % 0.2 % (0.0-0.8); Hematocrit 31.1 VOL% (42.0-52.0); Hemoglobin 10.1 GM/DL (14.0-18.0); Immature Granulocytes Absolute 0.25 #; Lymphocytes % 3.9 % (21.2-54.2); Mean Corpuscular HGB Conc 32.5 GM/DL (32-36); Mean Corpuscular Volume 89.9 FL (87-102); Mean Platelet Volume 10.6 FL (9.6-12.0); Monocytes % 2.7 % (1.7-12.7); Neutrophils % 92.2 % (38.7-73.9); Platelet Count 309 T/CUMM (130-400); Red Blood Count 3.46 MC/CUMM (3.8-5.5); Red Cell Distribution Width 14.5 % (9.3-17.3); White Blood Count 25.6 T/CUMM (4-12)
[2021-01-16 07:00] LABS: Calcium 9.1 MG/DL (8.5-10.1); Osmolality,Calculated 285.5 MOS/KG (273-304); Potassium 4.4 MMOL/L (3.5-5.1)
[2021-01-16] MEDS: INSULIN REGULAR 100 UNIT/ML SUBCUT SCH ×4 (08:02→20:21)
[2021-01-16] MEDS: FERROUS SULFATE 325 MG TABLET PO SCH (10:03)
[2021-01-16] MEDS: DOCUSATE SODIUM 100 MG CAPSULE PO SCH (10:03)
[2021-01-16] MEDS: AMIODARONE 200 MG TABLET PO SCH ×2 (10:03→20:20)
[2021-01-16] MEDS: SOLIFENACIN 5 MG TABLET PO SCH (10:04)
[2021-01-16] MEDS: ASPIRIN EC 81 MG TABLET PO SCH (10:04)
[2021-01-16] MEDS: PANTOPRAZOLE 40 MG TABLET PO SCH (10:04)
[2021-01-16] MEDS: ASCORBIC ACID 500 MG TABLET PO SCH ×2 (10:04→20:20)
[2021-01-16] MEDS: LEVOFLOXACIN 500 MG TABLET PO SCH (10:04)
[2021-01-16] MEDS: carvediloL 3.125 MG TABLET PO SCH ×2 (10:04→20:20)
[2021-01-16] MEDS: SACUBITRIL/VALSARTAN 49-51 MG TABLET PO SCH ×2 (10:04→20:20)
[2021-01-16] MEDS: methylPREDNISolone SOD SUC 40 MG/1 ML VIAL IV SCH ×2 (10:05→20:21)
[2021-01-16] MEDS: ENOXAPARIN 80 MG/0.8 ML SYRINGE SUBCUT SCH ×2 (10:10→20:21)
[2021-01-16] MEDS: CHLORHEXIDINE 0.12% ORAL RINSE 60 ML BOTTLE SWISH/SPIT SCH ×2 (10:10→20:21)
[2021-01-16 12:13] LABS: Hypochromasia Slight; Lymphocytes 6 % (20-55); Platelet Estimate Normal; Segmented Neutrophils 94 % (50-85); Total Cells Counted 100
[2021-01-16] MEDS: DIGOXIN 0.125 MG TABLET PO SCH (13:58)
[2021-01-16] MEDS: ATORVASTATIN 40 MG TABLET PO SCH (16:37)
[2021-01-17] MEDS: ALBUTEROL/IPRATROPIUM 3 ML NEB RESP TX SCH ×2 (00:30→07:40)
[2021-01-17 06:12] LABS: Basophils # 0.1 10*3/uL (0.0-0.2); Basophils % 0.2 % (0.0-0.8); Hematocrit 32.2 VOL% (42.0-52.0); Hemoglobin 10.3 GM/DL (14.0-18.0); Immature Granulocytes % 1.2 %; Immature Granulocytes Absolute 0.32 #; Lymphocytes # 0.9 10*3/uL (1.4-4.0); Lymphocytes % 3.6 % (21.2-54.2); Mean Corpuscular Volume 90.4 FL (87-102); Mean Platelet Volume 10.6 FL (9.6-12.0); Monocytes % 2.3 % (1.7-12.7); Neutrophils % 92.7 % (38.7-73.9); Platelet Count 332 T/CUMM (130-400); Red Blood Count 3.56 MC/CUMM (3.8-5.5); Red Cell Distribution Width 14.6 % (9.3-17.3); White Blood Count 26.1 T/CUMM (4-12)
[2021-01-17 06:30] LABS: Calcium 8.7 MG/DL (8.5-10.1); Osmolality,Calculated 291.3 MOS/KG (273-304); Potassium 4.5 MMOL/L (3.5-5.1)
[2021-01-17 06:35] LABS: Hypochromasia 1+; Lymphocytes 4 % (20-55); Microcytosis 1+; Platelet Estimate Adequate; Segmented Neutrophils 94 % (50-85); Total Cells Counted 100
[2021-01-17] MEDS: AMIODARONE 200 MG TABLET PO SCH (10:00)
[2021-01-17] MEDS: ASPIRIN EC 81 MG TABLET PO SCH (10:00)
[2021-01-17] MEDS: PANTOPRAZOLE 40 MG TABLET PO SCH (10:00)
[2021-01-17] MEDS: DOCUSATE SODIUM 100 MG CAPSULE PO SCH (10:00)
[2021-01-17] MEDS: ASCORBIC ACID 500 MG TABLET PO SCH (10:00)
[2021-01-17] MEDS: FERROUS SULFATE 325 MG TABLET PO SCH (10:00)
[2021-01-17] MEDS: SOLIFENACIN 5 MG TABLET PO SCH (10:00)
[2021-01-17] MEDS: carvediloL 3.125 MG TABLET PO SCH (10:00)
[2021-01-17] MEDS: SACUBITRIL/VALSARTAN 49-51 MG TABLET PO SCH (10:01)
[2021-01-17] MEDS: methylPREDNISolone SOD SUC 40 MG/1 ML VIAL IV SCH (10:02)
[2021-01-17] MEDS: ENOXAPARIN 80 MG/0.8 ML SYRINGE SUBCUT SCH (10:04)
[2021-01-17] MEDS: CHLORHEXIDINE 0.12% ORAL RINSE 60 ML BOTTLE SWISH/SPIT SCH (10:07)
[2021-01-17] MEDS: INSULIN REGULAR 100 UNIT/ML SUBCUT SCH ×2 (10:07→12:45)
[2021-01-17 11:52] VITALS: BP 149/67
== END 2021-01-17 12:49 | disposition home health service (06) | DRG 220 ==
LOC: N.4E 10:31 → N.CVR 01-05 12:29 → N.TELES 01-06 15:45
PROC: CABGMVR (ICD-10-PCS; 2021-01-05 06:45)

== ENCOUNTER 2021-10-30 14:00 | Observation (INO) ==
[2021-10-30 14:42] LABS: Basophils % 0.3 % (0.0-0.8); Eosinophils # 0.1 10*3/uL (0.0-0.87); Eosinophils % 1.8 % (0.00-10.9); Hematocrit 35.2 VOL% (42.0-52.0); Hemoglobin 11.5 GM/DL (14.0-18.0); Immature Granulocytes % 0.3 %; Immature Granulocytes Absolute 0.02 #; Lymphocytes # 1.7 10*3/uL (1.4-4.0); Lymphocytes % 22.5 % (21.2-54.2); Mean Corpuscular HGB Conc 32.7 GM/DL (32-36); Mean Corpuscular Volume 84.4 FL (87-102); Mean Platelet Volume 11.1 FL (9.6-12.0); Monocytes # 0.6 10*3/uL (0.11-0.8); Monocytes % 7.6 % (1.7-12.7); Neutrophils % 67.5 % (38.7-73.9); Platelet Count 163 T/CUMM (130-400); Red Blood Count 4.17 MC/CUMM (3.8-5.5); Red Cell Distribution Width 13.2 % (9.3-17.3); White Blood Count 7.6 T/CUMM (4-12)
[2021-10-30 14:52] LABS: INR 1.1; PT Patient Result 12.4 SECS (10.5-12.0); Partial Thromboplastin Time 29.2 SECS (23.8-32.1)
[2021-10-30 15:02] LABS: Albumin 2.9 G/DL (3.4-5.0); Bilirubin,Total 1.2 MG/DL (0.20-1.00); Calcium 8.8 MG/DL (8.5-10.1); Osmolality,Calculated 283.1 MOS/KG (273-304); Potassium 3.9 MMOL/L (3.5-5.1); Total Protein 6.5 G/DL (6.4-8.2)
[2021-10-30] MEDS ORDERED: PANTOPRAZOLE 40 MG VIAL IV STA (15:06)
[2021-10-30] MEDS ORDERED: ONDANSETRON 4 MG/2 ML VIAL IV STA (15:06)
[2021-10-30] MEDS ORDERED: ASPIRIN CHEW 81 MG TABLET PO STA (15:06)
[2021-10-30] MEDS ORDERED: MORPHINE 2 MG/1 ML SYRINGE IV STA (15:25)
[2021-10-30] MEDS ORDERED: FUROSEMIDE 40 MG/4 ML VIAL IV STA (21:02)
[2021-10-30] MEDS ORDERED: APIXABAN 5 MG TABLET PO STA (21:06)
[2021-10-30] MEDS ORDERED: MAGNESIUM SULF RIDER 4 GM/100 ML PREMIX IV PRN (21:13)
[2021-10-30] MEDS ORDERED: ONDANSETRON 4 MG/2 ML VIAL IV PRN (21:13)
[2021-10-30] MEDS ORDERED: MAGNESIUM SULF RIDER 2 GM/50 ML PREMIX IV PRN (21:13)
[2021-10-30] MEDS ORDERED: ACETAMINOPHEN 325 MG TABLET PO PRN (21:13)
[2021-10-30] MEDS ORDERED: ALBUTEROL/IPRATROPIUM 3 ML NEB RESP TX PRN (23:07)
[2021-10-30] MEDS ORDERED: MELOXICAM 7.5 MG TABLET PO PRN (23:07)
[2021-10-31 05:17] LABS: Basophils % 0.5 % (0.0-0.8); Eosinophils # 0.1 10*3/uL (0.0-0.87); Eosinophils % 1.2 % (0.00-10.9); Hematocrit 30.7 VOL% (42.0-52.0); Immature Granulocytes % 0.6 %; Immature Granulocytes Absolute 0.05 #; Lymphocytes # 1.6 10*3/uL (1.4-4.0); Lymphocytes % 18.8 % (21.2-54.2); Mean Corpuscular HGB Conc 32.6 GM/DL (32-36); Mean Corpuscular Volume 84.8 FL (87-102); Mean Platelet Volume 12.1 FL (9.6-12.0); Monocytes # 0.7 10*3/uL (0.11-0.8); Monocytes % 7.7 % (1.7-12.7); Neutrophils % 71.2 % (38.7-73.9); Platelet Count 147 T/CUMM (130-400); Red Blood Count 3.62 MC/CUMM (3.8-5.5); Red Cell Distribution Width 13.1 % (9.3-17.3); White Blood Count 8.5 T/CUMM (4-12)
[2021-10-31 05:34] LABS: Albumin 2.4 G/DL (3.4-5.0); Bilirubin,Total 0.9 MG/DL (0.20-1.00); Calcium 8.7 MG/DL (8.5-10.1); Osmolality,Calculated 275.7 MOS/KG (273-304); Potassium 3.9 MMOL/L (3.5-5.1); Total Protein 6.1 G/DL (6.4-8.2)
[2021-10-31] MEDS: ASPIRIN EC 81 MG TABLET PO SCH (08:34)
[2021-10-31] MEDS: PANTOPRAZOLE 40 MG TABLET PO SCH (08:34)
[2021-10-31] MEDS: SACUBITRIL/VALSARTAN 49-51 MG TABLET PO SCH ×2 (08:34→21:22)
[2021-10-31] MEDS: carvediloL 3.125 MG TABLET PO SCH ×2 (08:34→21:20)
[2021-10-31] MEDS: FUROSEMIDE 40 MG/4 ML VIAL IV SCH ×2 (08:35→15:36)
[2021-10-31] MEDS ORDERED: APIXABAN 5 MG TABLET PO SCH (09:00)
[2021-10-31] MEDS ORDERED: MAGNESIUM SULF RIDER 2 GM/50 ML PREMIX IV ONE (12:00)
[2021-10-31] MEDS ORDERED: ENOXAPARIN 80 MG/0.8 ML SYRINGE SUBCUT ONE (12:00)
[2021-10-31] MEDS: DIGOXIN 0.125 MG TABLET PO SCH (13:19)
[2021-10-31] MEDS ORDERED: POTASSIUM CHLORIDE 20 MEQ TABLET PO PRN (15:14)
[2021-10-31] MEDS: SPIRONOLACTONE 25 MG TABLET PO SCH (15:34)
[2021-10-31] MEDS: DAPAGLIFLOZIN 10 MG TABLET PO SCH (15:34)
[2021-10-31] MEDS: GABAPENTIN 300 MG CAPSULE PO SCH ×2 (15:34→21:20)
[2021-10-31] MEDS: DICLOFENAC 1% GEL 100 GM TUBE TOP SCH ×2 (16:17→21:23)
[2021-10-31 17:32] LABS: % Iron Saturation 9.8 % (18-50); Ferritin 286.9 ng/mL (26-388)
[2021-10-31] MEDS: ASCORBIC ACID 500 MG TABLET PO SCH (21:20)
[2021-11-01 05:15] LABS: Basophils % 0.3 % (0.0-0.8); Eosinophils # 0.3 10*3/uL (0.0-0.87); Hematocrit 34.8 VOL% (42.0-52.0); Hemoglobin 11.5 GM/DL (14.0-18.0); Immature Granulocytes % 0.3 %; Immature Granulocytes Absolute 0.02 #; Lymphocytes # 1.8 10*3/uL (1.4-4.0); Lymphocytes % 28.8 % (21.2-54.2); Mean Corpuscular Volume 84.5 FL (87-102); Mean Platelet Volume 12.3 FL (9.6-12.0); Monocytes # 0.5 10*3/uL (0.11-0.8); Neutrophils % 57.6 % (38.7-73.9); Platelet Count 164 T/CUMM (130-400); Red Blood Count 4.12 MC/CUMM (3.8-5.5); Red Cell Distribution Width 13.1 % (9.3-17.3); White Blood Count 6.4 T/CUMM (4-12)
[2021-11-01 05:39] LABS: Calcium 8.6 MG/DL (8.5-10.1); Osmolality,Calculated 279.7 MOS/KG (273-304); Potassium 3.6 MMOL/L (3.5-5.1)
[2021-11-01] MEDS: FUROSEMIDE 40 MG/4 ML VIAL IV SCH ×2 (10:39→15:08)
[2021-11-01] MEDS: SPIRONOLACTONE 25 MG TABLET PO SCH (10:39)
[2021-11-01] MEDS: ASPIRIN EC 81 MG TABLET PO SCH (10:39)
[2021-11-01] MEDS: carvediloL 3.125 MG TABLET PO SCH ×3 (10:39→21:29)
[2021-11-01] MEDS: DAPAGLIFLOZIN 10 MG TABLET PO SCH (10:40)
[2021-11-01] MEDS: ROSUVASTATIN 20 MG TABLET PO SCH (10:40)
[2021-11-01] MEDS: PANTOPRAZOLE 40 MG TABLET PO SCH (10:40)
[2021-11-01] MEDS: SACUBITRIL/VALSARTAN 49-51 MG TABLET PO SCH ×3 (10:40→21:28)
[2021-11-01] MEDS: GABAPENTIN 300 MG CAPSULE PO SCH ×2 (10:40→21:29)
[2021-11-01] MEDS: DICLOFENAC 1% GEL 100 GM TUBE TOP SCH ×4 (10:41→21:29)
[2021-11-01] MEDS: ASCORBIC ACID 500 MG TABLET PO SCH ×2 (10:41→21:29)
[2021-11-01] MEDS: APIXABAN 5 MG TABLET PO SCH ×2 (12:00→21:28)
[2021-11-01] MEDS ORDERED: METOPROLOL TARTRATE 5 MG/5 ML VIAL IV PRN (16:12)
[2021-11-01] MEDS: FERROUS SULFATE 325 MG TABLET PO SCH (21:29)
[2021-11-02 09:22] LABS: Basophils % 0.5 % (0.0-0.8); Eosinophils # 0.3 10*3/uL (0.0-0.87); Eosinophils % 5.3 % (0.00-10.9); Hematocrit 37.1 VOL% (42.0-52.0); Hemoglobin 12.5 GM/DL (14.0-18.0); Immature Granulocytes % 0.5 %; Immature Granulocytes Absolute 0.03 #; Lymphocytes # 1.8 10*3/uL (1.4-4.0); Lymphocytes % 28.8 % (21.2-54.2); Mean Corpuscular HGB Conc 33.7 GM/DL (32-36); Mean Corpuscular Volume 83.2 FL (87-102); Mean Platelet Volume 11.3 FL (9.6-12.0); Monocytes # 0.6 10*3/uL (0.11-0.8); Neutrophils % 55.9 % (38.7-73.9); Platelet Count 208 T/CUMM (130-400); Red Blood Count 4.46 MC/CUMM (3.8-5.5); White Blood Count 6.2 T/CUMM (4-12)
[2021-11-02 09:37] LABS: Calcium 8.7 MG/DL (8.5-10.1); Osmolality,Calculated 276.8 MOS/KG (273-304); Potassium 3.5 MMOL/L (3.5-5.1)
[2021-11-02] MEDS: ROSUVASTATIN 20 MG TABLET PO SCH (09:56)
[2021-11-02] MEDS: DAPAGLIFLOZIN 10 MG TABLET PO SCH (09:56)
[2021-11-02] MEDS: SACUBITRIL/VALSARTAN 49-51 MG TABLET PO SCH (09:56)
[2021-11-02] MEDS: SPIRONOLACTONE 25 MG TABLET PO SCH (09:57)
[2021-11-02] MEDS: carvediloL 3.125 MG TABLET PO SCH (09:57)
[2021-11-02] MEDS: PANTOPRAZOLE 40 MG TABLET PO SCH (09:57)
[2021-11-02] MEDS: ASCORBIC ACID 500 MG TABLET PO SCH (09:57)
[2021-11-02] MEDS: FERROUS SULFATE 325 MG TABLET PO SCH (09:57)
[2021-11-02] MEDS: APIXABAN 5 MG TABLET PO SCH (09:58)
[2021-11-02] MEDS: GABAPENTIN 300 MG CAPSULE PO SCH (09:58)
[2021-11-02] MEDS: ASPIRIN EC 81 MG TABLET PO SCH (09:58)
[2021-11-02] MEDS: FUROSEMIDE 40 MG/4 ML VIAL IV SCH ×2 (10:01→16:02)
[2021-11-02 11:25] VITALS: BP 111/55
[2021-11-02] MEDS: DIGOXIN 0.125 MG TABLET PO SCH (12:32)
[2021-11-02] MEDS: DICLOFENAC 1% GEL 100 GM TUBE TOP SCH ×2 (12:32→16:02)
[2021-11-02] MEDS ORDERED: METOPROLOL TARTRATE 25 MG TABLET PO SCH (21:00)
== END 2021-11-02 16:26 | disposition home or self-care (01) ==
LOC: N.5E 14:00 → N.ED 14:00 → SUATTDRO 21:13 → N.5E 23:57
PROVIDERS: ADMIT Hospitalist; ATTEND Internal Medicine

== ENCOUNTER 2022-01-04 08:08 | Observation (INO) ==
[2022-01-04] MEDS ORDERED: MAGNESIUM SULF RIDER 2 GM/50 ML PREMIX IV PRN (08:42)
[2022-01-04] MEDS ORDERED: DOCUSATE SODIUM 100 MG CAPSULE PO PRN (08:42)
[2022-01-04] MEDS ORDERED: ONDANSETRON 4 MG/2 ML VIAL IV PRN (08:42)
[2022-01-04] MEDS ORDERED: ZALEPLON 5 MG CAPSULE PO PRN (08:42)
[2022-01-04] MEDS ORDERED: MAGNESIUM SULF RIDER 4 GM/100 ML PREMIX IV PRN (08:42)
[2022-01-04] MEDS ORDERED: diphenhydrAMINE CAP 25 MG CAPSULE PO PRN (08:42)
[2022-01-04] MEDS ORDERED: MORPHINE 2 MG/1 ML SYRINGE IV PRN (08:42)
[2022-01-04 10:22] LABS: Basophils % 0.6 % (0.0-0.8); Eosinophils # 0.7 10*3/uL (0.0-0.87); Eosinophils % 10.8 % (0.00-10.9); Hematocrit 40.1 VOL% (42.0-52.0); Hemoglobin 12.5 GM/DL (14.0-18.0); Immature Granulocytes % 0.3 %; Immature Granulocytes Absolute 0.02 #; Lymphocytes # 1.9 10*3/uL (1.4-4.0); Lymphocytes % 29.7 % (21.2-54.2); Mean Corpuscular HGB Conc 31.2 GM/DL (32-36); Mean Corpuscular Volume 89.1 FL (87-102); Monocytes # 0.4 10*3/uL (0.11-0.8); Neutrophils % 52.6 % (38.7-73.9); Platelet Count 234 T/CUMM (130-400); White Blood Count 6.4 T/CUMM (4-12)
[2022-01-04 10:52] LABS: Albumin 3.3 G/DL (3.4-5.0); Bilirubin,Total 0.4 MG/DL (0.20-1.00); Calcium 8.9 MG/DL (8.5-10.1); Osmolality,Calculated 296.7 MOS/KG (273-304); Potassium 4.3 MMOL/L (3.5-5.1); Thyroid Stimulating Hormone 0.615 uIU/ml (0.358-3.74); Total Protein 6.7 G/DL (6.4-8.2)
[2022-01-04] MEDS: PANTOPRAZOLE 40 MG TABLET PO SCH (11:59)
[2022-01-04] MEDS: DICLOFENAC 1% GEL 100 GM TUBE TOP SCH ×2 (18:15→20:34)
[2022-01-04] MEDS: GABAPENTIN 300 MG CAPSULE PO SCH (20:34)
[2022-01-05 05:53] LABS: Basophils # 0.1 10*3/uL (0.0-0.2); Eosinophils # 0.8 10*3/uL (0.0-0.87); Eosinophils % 10.9 % (0.00-10.9); Hematocrit 39.1 VOL% (42.0-52.0); Hemoglobin 12.3 GM/DL (14.0-18.0); Immature Granulocytes % 0.4 %; Immature Granulocytes Absolute 0.03 #; Lymphocytes # 2.2 10*3/uL (1.4-4.0); Lymphocytes % 30.6 % (21.2-54.2); Mean Corpuscular HGB Conc 31.5 GM/DL (32-36); Mean Corpuscular Volume 87.7 FL (87-102); Mean Platelet Volume 12.1 FL (9.6-12.0); Monocytes # 0.5 10*3/uL (0.11-0.8); Monocytes % 7.2 % (1.7-12.7); Neutrophils % 49.9 % (38.7-73.9); Platelet Count 233 T/CUMM (130-400); Red Blood Count 4.46 MC/CUMM (3.8-5.5); White Blood Count 7.3 T/CUMM (4-12)
[2022-01-05 05:55] LABS: INR 1.1; PT Patient Result 12.4 SECS (10.1-12.1)
[2022-01-05 06:15] LABS: Bilirubin,Total 0.5 MG/DL (0.20-1.00); Calcium 8.9 MG/DL (8.5-10.1); Osmolality,Calculated 286.1 MOS/KG (273-304); Potassium 4.2 MMOL/L (3.5-5.1); Total Protein 6.5 G/DL (6.4-8.2)
[2022-01-05 06:20] LABS: Risk Ratio 3.77; VLDL Cholesterol 15.8 MG/DL
[2022-01-05] MEDS: GABAPENTIN 300 MG CAPSULE PO SCH (08:11)
[2022-01-05] MEDS: PANTOPRAZOLE 40 MG TABLET PO SCH (08:11)
[2022-01-05] MEDS: DICLOFENAC 1% GEL 100 GM TUBE TOP SCH ×2 (08:14→13:00)
[2022-01-05] MEDS ORDERED: DAPAGLIFLOZIN 10 MG TABLET PO SCH (09:00)
[2022-01-05] MEDS ORDERED: SPIRONOLACTONE 25 MG TABLET PO SCH (09:00)
[2022-01-05] MEDS ORDERED: ROSUVASTATIN 20 MG TABLET PO SCH (09:00)
[2022-01-05] MEDS ORDERED: ASPIRIN EC 81 MG TABLET PO SCH (09:00)
[2022-01-05] MEDS ORDERED: lisinopriL 5 MG TABLET PO SCH (09:00)
[2022-01-05] MEDS ORDERED: lisinopriL 5 MG TABLET PO ONE (09:41)
[2022-01-05] MEDS ORDERED: FUROSEMIDE 40 MG/4 ML VIAL IV ONE (09:48)
[2022-01-05] MEDS ORDERED: APIXABAN 5 MG TABLET PO SCH (10:04)
[2022-01-05 12:04] VITALS: BP 146/64
[2022-01-06] MEDS ORDERED: lisinopriL 10 MG TABLET PO SCH (09:00)
== END 2022-01-05 15:34 | disposition home health service (06) ==
LOC: N.2W
PROVIDERS: ADMIT Internal Medicine Interventional Cardiology; ATTEND Internal Medicine Interventional Cardiology

== ENCOUNTER 2022-03-10 08:09 | Observation (INO) ==
[2022-03-10] MEDS ORDERED: NITROGLYCERIN SL 0.4 MG TABLET SL PRN (08:38)
[2022-03-10] MEDS ORDERED: ASPIRIN 325 MG TABLET PO STA (08:38)
[2022-03-10 08:51] LABS: Basophils % 0.6 % (0.0-0.8); Eosinophils # 0.2 10*3/uL (0.0-0.87); Eosinophils % 2.4 % (0.00-10.9); Hematocrit 42.1 VOL% (42.0-52.0); Hemoglobin 13.5 GM/DL (14.0-18.0); Immature Granulocytes % 0.3 %; Immature Granulocytes Absolute 0.02 #; Lymphocytes # 1.7 10*3/uL (1.4-4.0); Lymphocytes % 25.9 % (21.2-54.2); Mean Corpuscular HGB Conc 32.1 GM/DL (32-36); Mean Corpuscular Volume 87.7 FL (87-102); Mean Platelet Volume 11.6 FL (9.6-12.0); Monocytes # 0.5 10*3/uL (0.11-0.8); Monocytes % 7.1 % (1.7-12.7); Neutrophils % 63.7 % (38.7-73.9); Platelet Count 155 T/CUMM (130-400); Red Cell Distribution Width 15.2 % (9.3-17.3); White Blood Count 6.4 T/CUMM (4-12)
[2022-03-10] MEDS ORDERED: FUROSEMIDE 40 MG/4 ML VIAL IV STA (09:03)
[2022-03-10] MEDS ORDERED: MORPHINE 2 MG/1 ML SYRINGE IV STA (09:04)
[2022-03-10] MEDS ORDERED: ONDANSETRON 4 MG/2 ML VIAL IV STA (09:04)
[2022-03-10 09:10] LABS: Calcium 9.1 MG/DL (8.5-10.1); Osmolality,Calculated 291.8 MOS/KG (273-304); Potassium 4.3 MMOL/L (3.5-5.1)
[2022-03-10] MEDS ORDERED: ONDANSETRON 4 MG/2 ML VIAL IV PRN (10:21)
[2022-03-10] MEDS: FUROSEMIDE 40 MG/4 ML VIAL IV SCH (15:49)
[2022-03-10] MEDS: lisinopriL 10 MG TABLET PO SCH (15:49)
[2022-03-10] MEDS: APIXABAN 5 MG TABLET PO SCH (20:09)
[2022-03-10] MEDS: AMIODARONE 200 MG TABLET PO SCH (20:09)
[2022-03-10] MEDS: ASCORBIC ACID 500 MG TABLET PO SCH (20:09)
[2022-03-10] MEDS: hydrALAZINE 20 MG/1 ML VIAL IV PRN (20:09)
[2022-03-11] MEDS: hydrALAZINE 20 MG/1 ML VIAL IV PRN (02:53)
[2022-03-11 04:43] LABS: Basophils % 0.2 % (0.0-0.8); Eosinophils # 0.1 10*3/uL (0.0-0.87); Eosinophils % 1.1 % (0.00-10.9); Hematocrit 44.1 VOL% (42.0-52.0); Hemoglobin 14.5 GM/DL (14.0-18.0); Immature Granulocytes % 0.2 %; Immature Granulocytes Absolute 0.02 #; Lymphocytes # 1.2 10*3/uL (1.4-4.0); Lymphocytes % 14.2 % (21.2-54.2); Mean Corpuscular HGB Conc 32.9 GM/DL (32-36); Mean Corpuscular Volume 84.6 FL (87-102); Mean Platelet Volume 10.9 FL (9.6-12.0); Monocytes # 0.8 10*3/uL (0.11-0.8); Monocytes % 9.8 % (1.7-12.7); Neutrophils % 74.5 % (38.7-73.9); Platelet Count 143 T/CUMM (130-400); Red Blood Count 5.21 MC/CUMM (3.8-5.5); Red Cell Distribution Width 14.7 % (9.3-17.3); White Blood Count 8.4 T/CUMM (4-12)
[2022-03-11 05:02] LABS: Albumin 2.9 G/DL (3.4-5.0); Bilirubin,Total 1.2 MG/DL (0.20-1.00); Calcium 8.6 MG/DL (8.5-10.1); Osmolality,Calculated 280.7 MOS/KG (273-304); Potassium 3.6 MMOL/L (3.5-5.1); Risk Ratio 2.97; Total Protein 6.3 G/DL (6.4-8.2); VLDL Cholesterol 11.2 MG/DL
[2022-03-11] MEDS: ASPIRIN EC 81 MG TABLET PO SCH (08:12)
[2022-03-11] MEDS: APIXABAN 5 MG TABLET PO SCH ×2 (08:12→20:16)
[2022-03-11] MEDS: PANTOPRAZOLE 40 MG TABLET PO SCH (08:12)
[2022-03-11] MEDS: AMIODARONE 200 MG TABLET PO SCH ×2 (08:12→20:16)
[2022-03-11] MEDS: lisinopriL 10 MG TABLET PO SCH (08:12)
[2022-03-11] MEDS: ASCORBIC ACID 500 MG TABLET PO SCH ×2 (08:12→20:16)
[2022-03-11] MEDS: GABAPENTIN 300 MG CAPSULE PO SCH (08:12)
[2022-03-11] MEDS: hydrALAZINE 10 MG TABLET PO SCH ×2 (08:13→20:16)
[2022-03-11] MEDS: FUROSEMIDE 40 MG/4 ML VIAL IV SCH ×2 (08:18→15:15)
[2022-03-11] MEDS ORDERED: ROSUVASTATIN 20 MG TABLET PO SCH (09:00)
[2022-03-11] MEDS ORDERED: DAPAGLIFLOZIN 10 MG TABLET PO SCH (09:00)
[2022-03-12 06:15] LABS: Basophils % 0.3 % (0.0-0.8); Eosinophils # 0.3 10*3/uL (0.0-0.87); Eosinophils % 2.3 % (0.00-10.9); Hematocrit 42.1 VOL% (42.0-52.0); Immature Granulocytes % 0.3 %; Immature Granulocytes Absolute 0.03 #; Lymphocytes # 1.7 10*3/uL (1.4-4.0); Lymphocytes % 15.3 % (21.2-54.2); Mean Corpuscular HGB Conc 33.3 GM/DL (32-36); Mean Corpuscular Volume 84.7 FL (87-102); Mean Platelet Volume 11.6 FL (9.6-12.0); Monocytes % 8.6 % (1.7-12.7); Neutrophils % 73.2 % (38.7-73.9); Platelet Count 134 T/CUMM (130-400); Red Blood Count 4.97 MC/CUMM (3.8-5.5); Red Cell Distribution Width 14.9 % (9.3-17.3); White Blood Count 11.1 T/CUMM (4-12)
[2022-03-12 06:34] LABS: Calcium 8.5 MG/DL (8.5-10.1); Potassium 3.7 MMOL/L (3.5-5.1)
[2022-03-12 06:41] LABS: Platelet Estimate Adequate
[2022-03-12 06:43] LABS: Albumin 2.8 G/DL (3.4-5.0); Bilirubin,Direct 0.27 MG/DL (0.0-0.20); Bilirubin,Indirect 0.7 MG/DL (0.0-1.0); Total Protein 6.3 G/DL (6.4-8.2)
[2022-03-12 07:14] LABS: Hepatitis B Core IgM Quant 0.13 Index; Hepatitis B Surface Ag Quant < 0.10 Index; Hepatitis B Surface Ag Result Non-Reactive (NonReactive); Hepatitis C Virus Ab Quant 0.05 Index; Hepatitis C Virus Ab Result Non-Reactive (NonReactive)
[2022-03-12 07:41] LABS: Albumin 2.7 G/DL (3.4-5.0); Calcium 8.4 MG/DL (8.5-10.1); Potassium 3.7 MMOL/L (3.5-5.1); Total Protein 6.1 G/DL (6.4-8.2)
[2022-03-12] MEDS: GABAPENTIN 300 MG CAPSULE PO SCH (08:45)
[2022-03-12] MEDS: AMIODARONE 200 MG TABLET PO SCH ×2 (08:45→20:28)
[2022-03-12] MEDS: APIXABAN 5 MG TABLET PO SCH ×2 (08:46→20:28)
[2022-03-12] MEDS: PANTOPRAZOLE 40 MG TABLET PO SCH (08:46)
[2022-03-12] MEDS: hydrALAZINE 10 MG TABLET PO SCH (08:46)
[2022-03-12] MEDS: ASCORBIC ACID 500 MG TABLET PO SCH ×2 (08:46→20:27)
[2022-03-12] MEDS: ASPIRIN EC 81 MG TABLET PO SCH (08:46)
[2022-03-12] MEDS: hydrALAZINE 25 MG TABLET PO SCH ×2 (15:17→20:28)
[2022-03-13 06:12] LABS: Basophils % 0.4 % (0.0-0.8); Eosinophils # 0.4 10*3/uL (0.0-0.87); Eosinophils % 4.5 % (0.00-10.9); Hematocrit 40.6 VOL% (42.0-52.0); Hemoglobin 13.4 GM/DL (14.0-18.0); Immature Granulocytes % 0.3 %; Immature Granulocytes Absolute 0.02 #; Lymphocytes # 1.4 10*3/uL (1.4-4.0); Lymphocytes % 18.2 % (21.2-54.2); Mean Corpuscular Volume 84.6 FL (87-102); Mean Platelet Volume 11.9 FL (9.6-12.0); Monocytes # 0.7 10*3/uL (0.11-0.8); Monocytes % 8.6 % (1.7-12.7); Platelet Count 141 T/CUMM (130-400); Red Cell Distribution Width 14.8 % (9.3-17.3); White Blood Count 7.7 T/CUMM (4-12)
[2022-03-13 06:30] LABS: Albumin 2.7 G/DL (3.4-5.0); Bilirubin,Total 0.7 MG/DL (0.20-1.00); Calcium 8.8 MG/DL (8.5-10.1); Osmolality,Calculated 280.7 MOS/KG (273-304); Potassium 3.8 MMOL/L (3.5-5.1); Total Protein 6.2 G/DL (6.4-8.2)
[2022-03-13 06:39] LABS: Albumin 2.6 G/DL (3.4-5.0); Bilirubin,Direct 0.19 MG/DL (0.0-0.20); Bilirubin,Indirect 0.5 MG/DL (0.0-1.0); Bilirubin,Total 0.7 MG/DL (0.20-1.00); Total Protein 6.2 G/DL (6.4-8.2)
[2022-03-13] MEDS: ASPIRIN EC 81 MG TABLET PO SCH (08:02)
[2022-03-13] MEDS: GABAPENTIN 300 MG CAPSULE PO SCH (08:02)
[2022-03-13] MEDS: ASCORBIC ACID 500 MG TABLET PO SCH (08:02)
[2022-03-13] MEDS: APIXABAN 5 MG TABLET PO SCH (08:03)
[2022-03-13] MEDS: hydrALAZINE 25 MG TABLET PO SCH (08:03)
[2022-03-13] MEDS: AMIODARONE 200 MG TABLET PO SCH (08:03)
[2022-03-13] MEDS: PANTOPRAZOLE 40 MG TABLET PO SCH (08:03)
[2022-03-13 12:08] VITALS: BP 162/95
== END 2022-03-13 14:05 | disposition home health service (06) ==
LOC: N.ED 08:09 → N.EDINP 08:09 → SUATTDRO 10:21 → N.2W 11:20
PROVIDERS: ADMIT Family Medicine; ATTEND Internal Medicine

== ENCOUNTER 2022-07-15 23:49 | Observation (INO) ==
[2022-07-16 00:57] LABS: Basophils # 0.1 10*3/uL (0.0-0.2); Basophils % 0.3 % (0.0-0.8); Eosinophils # 0.2 10*3/uL (0.0-0.87); Hematocrit 42.9 VOL% (42.0-52.0); Hemoglobin 13.9 GM/DL (14.0-18.0); Immature Granulocytes % 0.8 %; Immature Granulocytes Absolute 0.12 #; Lymphocytes # 1.1 10*3/uL (1.4-4.0); Lymphocytes % 7.9 % (21.2-54.2); Mean Corpuscular HGB Conc 32.4 GM/DL (32-36); Mean Corpuscular Volume 89.2 FL (87-102); Mean Platelet Volume 11.8 FL (9.6-12.0); Monocytes # 0.9 10*3/uL (0.11-0.8); Monocytes % 6.3 % (1.7-12.7); Neutrophils % 83.7 % (38.7-73.9); Platelet Count 179 T/CUMM (130-400); Red Blood Count 4.81 MC/CUMM (3.8-5.5); Red Cell Distribution Width 14.7 % (9.3-17.3); White Blood Count 14.38 T/CUMM (4-12)
[2022-07-16 01:11] LABS: Albumin 3.8 G/DL (3.4-5.0); Bilirubin,Total 1.2 MG/DL (0.20-1.00); Calcium 9.2 MG/DL (8.5-10.1); Osmolality,Calculated 285.3 MOS/KG (273-304); Potassium 3.8 MMOL/L (3.5-5.1); Total Protein 7.6 G/DL (6.4-8.2)
[2022-07-16] MEDS ORDERED: NITROGLYCERIN SL 0.4 MG TABLET SL STA (01:36)
[2022-07-16] MEDS ORDERED: ASPIRIN EC 325 MG TABLET PO STA (01:36)
[2022-07-16] MEDS ORDERED: ACETAMINOPHEN 325 MG TABLET PO PRN (02:33)
[2022-07-16] MEDS: cefTRIAXone 2,000 MG in SODIUM CHLORIDE 0.9% 100 ML IV SCH (03:50)
[2022-07-16] MEDS ORDERED: guaiFENesin 200 MG/10 ML UDCUP PO PRN (03:51)
[2022-07-16] MEDS ORDERED: methylPREDNISolone SOD SUC 40 MG/1 ML VIAL IV SCH (04:00)
[2022-07-16] MEDS: ALBUTEROL/IPRATROPIUM 3 ML NEB RESP TX SCH ×3 (06:58→20:49)
[2022-07-16] MEDS ORDERED: NITROGLYCERIN SL 0.4 MG TABLET SL PRN (07:23)
[2022-07-16] MEDS ORDERED: DICLOFENAC 1% GEL 100 GM TUBE TOP PRN (07:23)
[2022-07-16 08:01] LABS: Basophils # 0.1 10*3/uL (0.0-0.2); Basophils % 0.4 % (0.0-0.8); Eosinophils % 0.1 % (0.00-10.9); Hematocrit 39.1 VOL% (42.0-52.0); Hemoglobin 12.6 GM/DL (14.0-18.0); Immature Granulocytes % 1.3 %; Immature Granulocytes Absolute 0.18 #; Lymphocytes # 1.7 10*3/uL (1.4-4.0); Lymphocytes % 12.7 % (21.2-54.2); Mean Corpuscular HGB Conc 32.2 GM/DL (32-36); Mean Corpuscular Volume 87.7 FL (87-102); Mean Platelet Volume 12.1 FL (9.6-12.0); Monocytes # 0.8 10*3/uL (0.11-0.8); Monocytes % 6.3 % (1.7-12.7); Neutrophils % 79.2 % (38.7-73.9); Platelet Count 162 T/CUMM (130-400); Red Blood Count 4.46 MC/CUMM (3.8-5.5); Red Cell Distribution Width 14.6 % (9.3-17.3); White Blood Count 13.44 T/CUMM (4-12)
[2022-07-16 08:26] LABS: Albumin 3.3 G/DL (3.4-5.0); Bilirubin,Total 0.9 MG/DL (0.20-1.00); Calcium 8.7 MG/DL (8.5-10.1); Osmolality,Calculated 287.1 MOS/KG (273-304); Total Protein 6.7 G/DL (6.4-8.2)
[2022-07-16] MEDS: GABAPENTIN 300 MG CAPSULE PO SCH (08:29)
[2022-07-16] MEDS: APIXABAN 5 MG TABLET PO SCH ×2 (08:30→21:42)
[2022-07-16] MEDS: ASPIRIN EC 81 MG TABLET PO SCH (08:30)
[2022-07-16] MEDS: DAPAGLIFLOZIN 10 MG TABLET PO SCH (08:30)
[2022-07-16] MEDS: ASCORBIC ACID 500 MG TABLET PO SCH ×2 (08:30→21:42)
[2022-07-16] MEDS ORDERED: hydrALAZINE 25 MG TABLET PO SCH (09:00)
[2022-07-16] MEDS ORDERED: AMIODARONE 200 MG TABLET PO SCH (09:00)
[2022-07-16] MEDS: methylPREDNISolone SOD SUC 40 MG/1 ML VIAL IV SCH (17:20)
[2022-07-16] MEDS: ROSUVASTATIN 20 MG TABLET PO SCH (21:41)
[2022-07-17] MEDS: ALBUTEROL/IPRATROPIUM 3 ML NEB RESP TX SCH ×3 (02:12→19:46)
[2022-07-17] MEDS: cefTRIAXone 2,000 MG in SODIUM CHLORIDE 0.9% 100 ML IV SCH (04:39)
[2022-07-17 05:42] LABS: Basophils % 0.1 % (0.0-0.8); Hematocrit 39.4 VOL% (42.0-52.0); Hemoglobin 12.8 GM/DL (14.0-18.0); Immature Granulocytes % 0.9 %; Immature Granulocytes Absolute 0.14 #; Lymphocytes # 0.7 10*3/uL (1.4-4.0); Lymphocytes % 4.4 % (21.2-54.2); Mean Corpuscular HGB Conc 32.5 GM/DL (32-36); Mean Corpuscular Volume 87.6 FL (87-102); Mean Platelet Volume 12.1 FL (9.6-12.0); Monocytes # 0.6 10*3/uL (0.11-0.8); Neutrophils % 90.6 % (38.7-73.9); Platelet Count 159 T/CUMM (130-400); Red Cell Distribution Width 14.6 % (9.3-17.3)
[2022-07-17 05:57] LABS: Calcium 8.4 MG/DL (8.5-10.1); Osmolality,Calculated 289.4 MOS/KG (273-304); Potassium 3.8 MMOL/L (3.5-5.1)
[2022-07-17] MEDS: methylPREDNISolone SOD SUC 40 MG/1 ML VIAL IV SCH (06:00)
[2022-07-17 06:04] LABS: Band Neutrophils 1 % (0-10); Hypochromia Slight; Lymphocytes 5 % (20-55); Microcytosis Slight; Platelet Estimate Adequate; Total Cells Counted 100
[2022-07-17] MEDS: DAPAGLIFLOZIN 10 MG TABLET PO SCH (08:09)
[2022-07-17] MEDS: GABAPENTIN 300 MG CAPSULE PO SCH (08:09)
[2022-07-17] MEDS: ASPIRIN EC 81 MG TABLET PO SCH (08:09)
[2022-07-17] MEDS: ASCORBIC ACID 500 MG TABLET PO SCH ×2 (08:10→21:15)
[2022-07-17] MEDS: APIXABAN 5 MG TABLET PO SCH ×2 (08:10→21:15)
[2022-07-17] MEDS: AMIODARONE 200 MG TABLET PO SCH (08:11)
[2022-07-17] MEDS ORDERED: FUROSEMIDE 40 MG/4 ML VIAL IV ONE (08:41)
[2022-07-17] MEDS ORDERED: DEXTROSE 10% 250 ML BAG IV PRN (09:20)
[2022-07-17] MEDS ORDERED: GLUCAGON 1 MG VIAL IM PRN (09:20)
[2022-07-17] MEDS: predniSONE 20 MG TABLET PO SCH (09:42)
[2022-07-17] MEDS: ISOSORBIDE MONONITRATE 30 MG TABLET PO SCH (09:42)
[2022-07-17] MEDS: SPIRONOLACTONE 25 MG TABLET PO SCH (09:42)
[2022-07-17] MEDS: INSULIN LISPRO 100 UNIT/ML SUBCUT SCH ×3 (11:31→20:44)
[2022-07-17] MEDS: ROSUVASTATIN 20 MG TABLET PO SCH (21:15)
[2022-07-18] MEDS: ALBUTEROL/IPRATROPIUM 3 ML NEB RESP TX SCH ×2 (00:55→07:11)
[2022-07-18] MEDS: cefTRIAXone 2,000 MG in SODIUM CHLORIDE 0.9% 100 ML IV SCH (04:29)
[2022-07-18 05:48] LABS: Basophils % 0.1 % (0.0-0.8); Hematocrit 38.4 VOL% (42.0-52.0); Hemoglobin 12.5 GM/DL (14.0-18.0); Immature Granulocytes % 3.6 %; Immature Granulocytes Absolute 0.63 #; Lymphocytes # 1.2 10*3/uL (1.4-4.0); Lymphocytes % 6.5 % (21.2-54.2); Mean Corpuscular HGB Conc 32.6 GM/DL (32-36); Mean Corpuscular Volume 88.1 FL (87-102); Mean Platelet Volume 11.9 FL (9.6-12.0); Monocytes # 1.1 10*3/uL (0.11-0.8); Monocytes % 6.2 % (1.7-12.7); Neutrophils % 83.6 % (38.7-73.9); Platelet Count 184 T/CUMM (130-400); Red Blood Count 4.36 MC/CUMM (3.8-5.5); Red Cell Distribution Width 14.7 % (9.3-17.3); White Blood Count 17.66 T/CUMM (4-12)
[2022-07-18 06:11] LABS: Calcium 8.9 MG/DL (8.5-10.1); Osmolality,Calculated 291.3 MOS/KG (273-304); Potassium 3.9 MMOL/L (3.5-5.1)
[2022-07-18 06:21] LABS: Calcium 8.6 MG/DL (8.5-10.1); Osmolality,Calculated 287.5 MOS/KG (273-304); Potassium 3.7 MMOL/L (3.5-5.1)
[2022-07-18 07:18] LABS: Band Neutrophils 3 % (0-10); Lymphocytes 7 % (20-55); Microcytosis Slight; Ovalocytes Slight; Total Cells Counted 100
[2022-07-18 07:19] LABS: Platelet Estimate Adequate
[2022-07-18] MEDS: INSULIN LISPRO 100 UNIT/ML SUBCUT SCH ×2 (08:41→10:50)
[2022-07-18] MEDS: SPIRONOLACTONE 25 MG TABLET PO SCH (10:04)
[2022-07-18] MEDS: APIXABAN 5 MG TABLET PO SCH (10:05)
[2022-07-18] MEDS: ASCORBIC ACID 500 MG TABLET PO SCH (10:05)
[2022-07-18] MEDS: GABAPENTIN 300 MG CAPSULE PO SCH (10:05)
[2022-07-18] MEDS: ISOSORBIDE MONONITRATE 30 MG TABLET PO SCH (10:06)
[2022-07-18] MEDS: DAPAGLIFLOZIN 10 MG TABLET PO SCH (10:06)
[2022-07-18] MEDS: predniSONE 20 MG TABLET PO SCH (10:08)
[2022-07-18] MEDS: ASPIRIN EC 81 MG TABLET PO SCH (10:09)
[2022-07-18] MEDS: AMIODARONE 200 MG TABLET PO SCH (10:10)
[2022-07-18 10:57] VITALS: BP 136/73
== END 2022-07-18 13:00 | disposition home or self-care (01) ==
LOC: N.EDINP 23:49 → N.ED 23:49 → SUATTDRO 07-16 02:33 → N.2W 07-16 04:08
PROVIDERS: ADMIT Internal Medicine; ATTEND Internal Medicine

== ENCOUNTER 2022-07-23 09:51 | Inpatient (IN) ==
[2022-07-23 10:41] LABS: Basophils % 0.4 % (0.0-0.8); Eosinophils # 0.5 10*3/uL (0.0-0.87); Hematocrit 40.5 VOL% (42.0-52.0); Immature Granulocytes % 2.2 %; Immature Granulocytes Absolute 0.16 #; Lymphocytes # 1.9 10*3/uL (1.4-4.0); Lymphocytes % 26.3 % (21.2-54.2); Mean Corpuscular HGB Conc 32.1 GM/DL (32-36); Mean Corpuscular Volume 87.5 FL (87-102); Mean Platelet Volume 10.3 FL (9.6-12.0); Monocytes # 0.7 10*3/uL (0.11-0.8); Monocytes % 9.4 % (1.7-12.7); Neutrophils % 54.7 % (38.7-73.9); Platelet Count 205 T/CUMM (130-400); Red Blood Count 4.63 MC/CUMM (3.8-5.5); Red Cell Distribution Width 14.6 % (9.3-17.3); White Blood Count 7.26 T/CUMM (4-12)
[2022-07-23 10:55] LABS: Partial Thromboplastin Time 27.3 SECS (23.7-32.9)
[2022-07-23 11:06] LABS: Alanine Aminotransferase 30 U/L (16-61); Albumin 2.8 G/DL (3.4-5.0); Alkaline Phosphatase 81 U/L (45-117); Aspartate Amino Transferase 16 U/L (0-37); Bilirubin,Total < 0.39 MG/DL (0.20-1.00); Blood Urea Nitrogen 21 MG/DL (7-18); Calcium 8.7 MG/DL (8.5-10.1); Carbon Dioxide 26 MMOL/L (21-32); Chloride 112 MMOL/L (98-107); Glucose 121 MG/DL (74-106); Osmolality,Calculated 291.7 MOS/KG (273-304); Potassium 3.5 MMOL/L (3.5-5.1); Sodium 145 MMOL/L (136-145); Total Protein 6.5 G/DL (6.4-8.2)
[2022-07-23] MEDS ORDERED: ONDANSETRON 4 MG/2 ML VIAL IV PRN (13:29)
[2022-07-23] MEDS ORDERED: ACETAMINOPHEN 325 MG TABLET PO PRN (13:29)
[2022-07-23] MEDS ORDERED: ALBUTEROL/IPRATROPIUM 3 ML NEB RESP TX PRN (14:05)
[2022-07-23] MEDS: hydrALAZINE 25 MG TABLET PO SCH ×2 (15:42→22:08)
[2022-07-23] MEDS: ATORVASTATIN 40 MG TABLET PO SCH (21:50)
[2022-07-23] MEDS: APIXABAN 5 MG TABLET PO SCH (21:50)
[2022-07-24 04:30] LABS: Basophils % 0.1 % (0.0-0.8); Eosinophils # 0.4 10*3/uL (0.0-0.87); Eosinophils % 5.2 % (0.00-10.9); Hematocrit 37.5 VOL% (42.0-52.0); Hemoglobin 12.3 GM/DL (14.0-18.0); Immature Granulocytes % 0.9 %; Immature Granulocytes Absolute 0.06 #; Lymphocytes # 1.9 10*3/uL (1.4-4.0); Lymphocytes % 28.3 % (21.2-54.2); Mean Corpuscular HGB Conc 32.8 GM/DL (32-36); Mean Corpuscular Volume 87.8 FL (87-102); Mean Platelet Volume 10.2 FL (9.6-12.0); Monocytes # 0.8 10*3/uL (0.11-0.8); Monocytes % 11.1 % (1.7-12.7); Neutrophils % 54.4 % (38.7-73.9); Platelet Count 177 T/CUMM (130-400); Red Blood Count 4.27 MC/CUMM (3.8-5.5); Red Cell Distribution Width 14.5 % (9.3-17.3); White Blood Count 6.86 T/CUMM (4-12)
[2022-07-24 05:02] LABS: Albumin 2.4 G/DL (3.4-5.0); Bilirubin,Total 0.4 MG/DL (0.20-1.00); Calcium 8.3 MG/DL (8.5-10.1); Osmolality,Calculated 284.1 MOS/KG (273-304); Potassium 3.6 MMOL/L (3.5-5.1); Risk Ratio 4.11; Thyroid Stimulating Hormone 0.249 uIU/ml (0.358-3.74); Total Protein 5.8 G/DL (6.4-8.2); VLDL Cholesterol 19.2 MG/DL
[2022-07-24] MEDS ORDERED: PNEUMOCOCCAL VACCINE (20 VALENT) 0.5 ML SYRINGE IM ONE (07:27)
[2022-07-24] MEDS ORDERED: AMIODARONE 200 MG TABLET PO SCH (09:00)
[2022-07-24] MEDS: ASCORBIC ACID 500 MG TABLET PO SCH ×3 (12:05→20:38)
[2022-07-24] MEDS: PANTOPRAZOLE 40 MG TABLET PO SCH (12:06)
[2022-07-24] MEDS: ISOSORBIDE MONONITRATE 30 MG TABLET PO SCH (12:06)
[2022-07-24] MEDS: APIXABAN 5 MG TABLET PO SCH ×2 (12:06→20:11)
[2022-07-24] MEDS: hydrALAZINE 25 MG TABLET PO SCH ×3 (12:06→20:10)
[2022-07-24] MEDS: ASPIRIN EC 81 MG TABLET PO SCH (12:06)
[2022-07-24] MEDS: GABAPENTIN 300 MG CAPSULE PO SCH (12:07)
[2022-07-24] MEDS ORDERED: NITROGLYCERIN SL 0.4 MG TABLET SL PRN (12:11)
[2022-07-24] MEDS ORDERED: DICLOFENAC 1% GEL 100 GM TUBE TOP PRN (12:11)
[2022-07-24 12:47] LABS: Free T4 (Free Thyroxine) 1.45 NG/DL (0.76-1.46)
[2022-07-24 17:41] LABS: % Iron Saturation 15.4 % (18-50)
[2022-07-24 17:48] LABS: 25 Hydroxy Vitamin D Total 13.7 NG/ML (30-100); Folate 7.63 NG/ML (5.38-24.0)
[2022-07-24] MEDS: ATORVASTATIN 40 MG TABLET PO SCH (20:11)
[2022-07-25 05:00] LABS: Basophils % 0.3 % (0.0-0.8); Eosinophils # 0.2 10*3/uL (0.0-0.87); Eosinophils % 3.1 % (0.00-10.9); Hematocrit 36.8 VOL% (42.0-52.0); Hemoglobin 11.8 GM/DL (14.0-18.0); Immature Granulocytes % 0.9 %; Immature Granulocytes Absolute 0.05 #; Lymphocytes % 34.3 % (21.2-54.2); Mean Corpuscular HGB Conc 32.1 GM/DL (32-36); Mean Corpuscular Volume 86.6 FL (87-102); Mean Platelet Volume 10.7 FL (9.6-12.0); Monocytes # 0.5 10*3/uL (0.11-0.8); Monocytes % 8.5 % (1.7-12.7); Neutrophils % 52.9 % (38.7-73.9); Platelet Count 191 T/CUMM (130-400); Red Blood Count 4.25 MC/CUMM (3.8-5.5); Red Cell Distribution Width 14.3 % (9.3-17.3); White Blood Count 5.78 T/CUMM (4-12)
[2022-07-25 05:30] LABS: Calcium 8.4 MG/DL (8.5-10.1); Osmolality,Calculated 281.4 MOS/KG (273-304)
[2022-07-25] MEDS ORDERED: FUROSEMIDE 20 MG TABLET PO SCH (09:00)
[2022-07-25] MEDS: FERROUS SULFATE 325 MG TABLET PO SCH ×2 (10:13→20:42)
[2022-07-25] MEDS: APIXABAN 5 MG TABLET PO SCH ×2 (10:14→20:41)
[2022-07-25] MEDS: ISOSORBIDE MONONITRATE 30 MG TABLET PO SCH (10:14)
[2022-07-25] MEDS: ASCORBIC ACID 500 MG TABLET PO SCH ×2 (10:14→20:42)
[2022-07-25] MEDS: hydrALAZINE 25 MG TABLET PO SCH ×3 (10:14→20:42)
[2022-07-25] MEDS: ASPIRIN EC 81 MG TABLET PO SCH (10:14)
[2022-07-25] MEDS: PANTOPRAZOLE 40 MG TABLET PO SCH (10:14)
[2022-07-25] MEDS: GABAPENTIN 300 MG CAPSULE PO SCH (10:14)
[2022-07-25] MEDS: CHOLECALCIFEROL 5,000 UNIT TABLET PO SCH (10:14)
[2022-07-25] MEDS: DAPAGLIFLOZIN 10 MG TABLET PO SCH (10:15)
[2022-07-25] MEDS: ATORVASTATIN 40 MG TABLET PO SCH (20:42)
[2022-07-26 04:35] LABS: Basophils % 0.4 % (0.0-0.8); Eosinophils # 0.2 10*3/uL (0.0-0.87); Eosinophils % 3.4 % (0.00-10.9); Hematocrit 36.7 VOL% (42.0-52.0); Hemoglobin 11.7 GM/DL (14.0-18.0); Immature Granulocytes % 0.6 %; Immature Granulocytes Absolute 0.03 #; Lymphocytes % 38.8 % (21.2-54.2); Mean Corpuscular HGB Conc 31.9 GM/DL (32-36); Mean Corpuscular Volume 87.6 FL (87-102); Mean Platelet Volume 10.2 FL (9.6-12.0); Monocytes # 0.4 10*3/uL (0.11-0.8); Monocytes % 7.5 % (1.7-12.7); Neutrophils % 49.3 % (38.7-73.9); Platelet Count 186 T/CUMM (130-400); Red Blood Count 4.19 MC/CUMM (3.8-5.5); Red Cell Distribution Width 14.2 % (9.3-17.3); White Blood Count 5.23 T/CUMM (4-12)
[2022-07-26 04:59] LABS: Calcium 8.5 MG/DL (8.5-10.1); Osmolality,Calculated 282.3 MOS/KG (273-304)
[2022-07-26] MEDS ORDERED: SODIUM CHLORIDE 0.9% 1,000 ML IV SCH (08:00)
[2022-07-26] MEDS: GABAPENTIN 300 MG CAPSULE PO SCH (09:29)
[2022-07-26] MEDS: PANTOPRAZOLE 40 MG TABLET PO SCH (09:30)
[2022-07-26] MEDS: hydrALAZINE 25 MG TABLET PO SCH ×3 (09:30→21:00)
[2022-07-26] MEDS: ISOSORBIDE MONONITRATE 30 MG TABLET PO SCH (09:30)
[2022-07-26] MEDS: CHOLECALCIFEROL 5,000 UNIT TABLET PO SCH (09:30)
[2022-07-26] MEDS: ASCORBIC ACID 500 MG TABLET PO SCH ×2 (09:30→21:00)
[2022-07-26] MEDS: APIXABAN 5 MG TABLET PO SCH ×2 (09:30→20:59)
[2022-07-26] MEDS: ASPIRIN EC 81 MG TABLET PO SCH (09:30)
[2022-07-26] MEDS: FERROUS SULFATE 325 MG TABLET PO SCH ×2 (09:30→21:00)
[2022-07-26] MEDS: DAPAGLIFLOZIN 10 MG TABLET PO SCH (09:38)
[2022-07-26] MEDS ORDERED: LACTATED RINGERS 1,000 ML IV SCH (12:00)
[2022-07-26] MEDS: ATORVASTATIN 40 MG TABLET PO SCH (20:59)
[2022-07-27 04:21] LABS: Basophils % 0.8 % (0.0-0.8); Eosinophils # 0.2 10*3/uL (0.0-0.87); Eosinophils % 4.2 % (0.00-10.9); Hematocrit 35.1 VOL% (42.0-52.0); Hemoglobin 11.1 GM/DL (14.0-18.0); Immature Granulocytes % 0.4 %; Immature Granulocytes Absolute 0.02 #; Lymphocytes # 1.8 10*3/uL (1.4-4.0); Lymphocytes % 33.3 % (21.2-54.2); Mean Corpuscular HGB Conc 31.6 GM/DL (32-36); Mean Corpuscular Volume 88.2 FL (87-102); Mean Platelet Volume 10.2 FL (9.6-12.0); Monocytes # 0.4 10*3/uL (0.11-0.8); Monocytes % 7.6 % (1.7-12.7); Neutrophils % 53.7 % (38.7-73.9); Platelet Count 184 T/CUMM (130-400); Red Blood Count 3.98 MC/CUMM (3.8-5.5); Red Cell Distribution Width 14.2 % (9.3-17.3); White Blood Count 5.25 T/CUMM (4-12)
[2022-07-27 04:43] LABS: Calcium 8.1 MG/DL (8.5-10.1); Osmolality,Calculated 285.1 MOS/KG (273-304); Potassium 3.7 MMOL/L (3.5-5.1)
[2022-07-27] MEDS: hydrALAZINE 25 MG TABLET PO SCH ×3 (09:34→20:45)
[2022-07-27] MEDS: ISOSORBIDE MONONITRATE 30 MG TABLET PO SCH (09:34)
[2022-07-27] MEDS: ASCORBIC ACID 500 MG TABLET PO SCH ×2 (09:34→20:45)
[2022-07-27] MEDS: GABAPENTIN 300 MG CAPSULE PO SCH (09:34)
[2022-07-27] MEDS: APIXABAN 5 MG TABLET PO SCH ×2 (09:34→20:45)
[2022-07-27] MEDS: PANTOPRAZOLE 40 MG TABLET PO SCH (09:34)
[2022-07-27] MEDS: CHOLECALCIFEROL 5,000 UNIT TABLET PO SCH (09:34)
[2022-07-27] MEDS: ASPIRIN EC 81 MG TABLET PO SCH (09:34)
[2022-07-27] MEDS: FERROUS SULFATE 325 MG TABLET PO SCH ×2 (09:34→20:45)
[2022-07-27] MEDS: ATORVASTATIN 40 MG TABLET PO SCH (20:44)
[2022-07-28 05:05] LABS: Basophils % 0.6 % (0.0-0.8); Eosinophils # 0.3 10*3/uL (0.0-0.87); Eosinophils % 4.7 % (0.00-10.9); Hematocrit 35.4 VOL% (42.0-52.0); Hemoglobin 11.3 GM/DL (14.0-18.0); Immature Granulocytes % 0.5 %; Immature Granulocytes Absolute 0.03 #; Lymphocytes % 30.7 % (21.2-54.2); Mean Corpuscular HGB Conc 31.9 GM/DL (32-36); Mean Corpuscular Volume 88.1 FL (87-102); Mean Platelet Volume 10.7 FL (9.6-12.0); Monocytes # 0.5 10*3/uL (0.11-0.8); Monocytes % 7.7 % (1.7-12.7); Neutrophils % 55.8 % (38.7-73.9); Platelet Count 194 T/CUMM (130-400); Red Blood Count 4.02 MC/CUMM (3.8-5.5); Red Cell Distribution Width 14.4 % (9.3-17.3); White Blood Count 6.65 T/CUMM (4-12)
[2022-07-28 05:21] LABS: Calcium 8.3 MG/DL (8.5-10.1); Osmolality,Calculated 282.3 MOS/KG (273-304); Potassium 3.8 MMOL/L (3.5-5.1)
[2022-07-28] MEDS: ASCORBIC ACID 500 MG TABLET PO SCH ×2 (08:57→20:46)
[2022-07-28] MEDS: ISOSORBIDE MONONITRATE 30 MG TABLET PO SCH (08:57)
[2022-07-28] MEDS: FERROUS SULFATE 325 MG TABLET PO SCH ×2 (08:57→20:46)
[2022-07-28] MEDS: PANTOPRAZOLE 40 MG TABLET PO SCH (08:58)
[2022-07-28] MEDS: APIXABAN 5 MG TABLET PO SCH ×2 (08:58→20:46)
[2022-07-28] MEDS: GABAPENTIN 300 MG CAPSULE PO SCH (08:58)
[2022-07-28] MEDS: hydrALAZINE 25 MG TABLET PO SCH ×3 (08:58→20:46)
[2022-07-28] MEDS: CHOLECALCIFEROL 5,000 UNIT TABLET PO SCH (08:58)
[2022-07-28] MEDS: ASPIRIN EC 81 MG TABLET PO SCH (08:58)
[2022-07-28] MEDS: ATORVASTATIN 40 MG TABLET PO SCH (20:46)
[2022-07-29 04:18] LABS: Basophils # 0.1 10*3/uL (0.0-0.2); Basophils % 0.8 % (0.0-0.8); Eosinophils # 0.3 10*3/uL (0.0-0.87); Eosinophils % 4.8 % (0.00-10.9); Hematocrit 34.4 VOL% (42.0-52.0); Hemoglobin 11.2 GM/DL (14.0-18.0); Immature Granulocytes % 0.3 %; Immature Granulocytes Absolute 0.02 #; Lymphocytes # 1.9 10*3/uL (1.4-4.0); Lymphocytes % 28.7 % (21.2-54.2); Mean Corpuscular HGB Conc 32.6 GM/DL (32-36); Mean Corpuscular Volume 87.5 FL (87-102); Mean Platelet Volume 10.6 FL (9.6-12.0); Monocytes # 0.5 10*3/uL (0.11-0.8); Monocytes % 7.1 % (1.7-12.7); Neutrophils % 58.3 % (38.7-73.9); Platelet Count 182 T/CUMM (130-400); Red Blood Count 3.93 MC/CUMM (3.8-5.5); Red Cell Distribution Width 14.4 % (9.3-17.3); White Blood Count 6.52 T/CUMM (4-12)
[2022-07-29 04:37] LABS: Calcium 8.4 MG/DL (8.5-10.1); Osmolality,Calculated 286.8 MOS/KG (273-304); Potassium 3.9 MMOL/L (3.5-5.1)
[2022-07-29] MEDS: GABAPENTIN 300 MG CAPSULE PO SCH ×2 (09:25→11:22)
[2022-07-29] MEDS: ASPIRIN EC 81 MG TABLET PO SCH ×2 (09:25→11:20)
[2022-07-29] MEDS: FERROUS SULFATE 325 MG TABLET PO SCH ×3 (09:25→20:28)
[2022-07-29] MEDS: PANTOPRAZOLE 40 MG TABLET PO SCH ×2 (09:25→11:22)
[2022-07-29] MEDS: CHOLECALCIFEROL 5,000 UNIT TABLET PO SCH ×2 (09:25→11:22)
[2022-07-29] MEDS: ASCORBIC ACID 500 MG TABLET PO SCH ×3 (09:25→20:28)
[2022-07-29] MEDS: ISOSORBIDE MONONITRATE 30 MG TABLET PO SCH ×2 (09:25→11:22)
[2022-07-29] MEDS: APIXABAN 5 MG TABLET PO SCH ×3 (09:25→20:27)
[2022-07-29] MEDS: hydrALAZINE 25 MG TABLET PO SCH ×4 (09:26→20:28)
[2022-07-29] MEDS ORDERED: hydrALAZINE 20 MG/1 ML VIAL IV PRN (14:10)
[2022-07-29] MEDS: POLYETHYLENE GLYCOL POWDER 17 GM PACK PO SCH (15:06)
[2022-07-29] MEDS: DOCUSATE SODIUM 100 MG CAPSULE PO SCH ×2 (15:06→20:28)
[2022-07-29] MEDS: ATORVASTATIN 40 MG TABLET PO SCH (20:27)
[2022-07-30] MEDS: ASCORBIC ACID 500 MG TABLET PO SCH (09:49)
[2022-07-30] MEDS: hydrALAZINE 25 MG TABLET PO SCH ×2 (09:49→15:36)
[2022-07-30] MEDS: ASPIRIN EC 81 MG TABLET PO SCH (09:49)
[2022-07-30] MEDS: GABAPENTIN 300 MG CAPSULE PO SCH (09:49)
[2022-07-30] MEDS: DOCUSATE SODIUM 100 MG CAPSULE PO SCH (09:49)
[2022-07-30] MEDS: APIXABAN 5 MG TABLET PO SCH (09:49)
[2022-07-30] MEDS: CHOLECALCIFEROL 5,000 UNIT TABLET PO SCH (09:49)
[2022-07-30] MEDS: ISOSORBIDE MONONITRATE 30 MG TABLET PO SCH (09:50)
[2022-07-30] MEDS: FERROUS SULFATE 325 MG TABLET PO SCH (09:50)
[2022-07-30] MEDS: PANTOPRAZOLE 40 MG TABLET PO SCH (09:50)
[2022-07-30] MEDS: POLYETHYLENE GLYCOL POWDER 17 GM PACK PO SCH (09:53)
[2022-07-30 12:23] VITALS: BP 124/65
== END 2022-07-30 15:37 | DRG 65 ==
LOC: N.ED 09:51 → N.EDINP 13:29 → SUATTDRO 13:29 → N.TELES 07-24 17:20
PROVIDERS: ADMIT Internal Medicine; ATTEND Internal Medicine